=== PATIENT | male | born 1965 | race Caucasian/White ===

== ENCOUNTER → 2023-01-12 | Outpatient (CLI) | payer MEDICARE, SELFPAY ==
[2023-01-12 15:24] LABS: Hematocrit 41.7 % (40-54); Hemoglobin 14.3 g/dL (13.0-16.5); Mean Corp Hgb Conc 34.3 g/dL (32-36); Mean Platelet Vol. 10.4 fl (6.2-12.0); Platelet Count 138 K/mm3 (150-450); RBC Distribution Width CV 14.5 % (11.6-14.6); RBC Distribution Width SD 52.5 fl (35.1-43.9); Red Blood Count 4.21 M/mm3 (4.6-6.2); White Blood Count 6.7 K/mm3 (4.4-11.0)
[2023-01-12 15:39] LABS: Microalbumin,Random Urine 6.2 mg/L (NO RANGE EST.)
[2023-01-12 16:05] LABS: BNP,B-Type NATRIURETIC PEPTIDE 22.2 pg/mL (0-100)
[2023-01-12 16:12] LABS: ALB/GLOB Ratio 1.1 RATIO (0.9-2.4); AST(SGOT) 69 U/L (15-37); Alanine Aminotransfer ALT/SGPT 53 U/L (16-61); Albumin, Serum 3.9 g/dL (3.2-5.0); Alkaline Phosphatase 119 U/L (45-117); Anion Gap 6 (5-15); BUN 6 mg/dL (7-18); BUN/Creat Ratio 7.8 RATIO (10-20); Calcium,Total 9.1 mg/dL (8.5-10.1); Chloride 103 mmol/L (98-107); Cholesterol 166 mg/dL (200); Creatinine, Serum 0.77 mg/dL (0.70-1.30); EST Glomerular Filtration Rate 110 mL/min (>60); Est Glom Filt Rate - Afr Amer 133 mL/min (>60); Globulin 3.5 g/dL (2.2-4.2); Glucose 124 mg/dL (74-106); High Density Lipoprotein 41 mg/dL; Potassium 3.4 mmol/L (3.5-5.1); Protein, Total 7.4 g/dL (6.4-8.2); Sodium Level 136 mmol/L (136-145); Triglycerides 251 mg/dL; Very Low Density Lipoprotein 50 mg/dL (5-40)
== END | disposition home or self-care (01) ==
PROVIDERS: PCP Nurse Practitioner Family; Referring Provider Nurse Practitioner Family; Visit Provider Nurse Practitioner Family
DX: J18.9 Pneumonia, unspecified organism (principal); I11.0 Hypertensive heart disease with heart failure; I50.22 Chronic systolic (congestive) heart failure; R91.8 Other nonspecific abnormal finding of lung field; R06.02 Shortness of breath; D64.9 Anemia, unspecified; E78.6 Lipoprotein deficiency
CPT/HCPCS: 36415; 80053; 80061; 82043; 83880; 85027

== ENCOUNTER 2023-06-30 10:21 | Emergency (ER) | payer MEDICARE, MEDICAID, SELFPAY ==
[2023-06-30 10:22] VITALS: BP 114/97; PULSE 97; RESP 14; TEMP 36.6; O2SAT 98; BMI 34.7
--- NOTE | 2023-06-30 11:20 | CT_ITS ---
STUDY: CT ABDOMEN AND PELVIS WITH CONTRAST REASON FOR EXAM: Male, 57 years old. Left kidney pain RADIATION DOSAGE (If Supplied By Facility): CTDIvol = ( 14.67 ) mGy, DLP = ( 1200.14 ) mGycm TECHNIQUE: Transaxial images were obtained from the dome of the diaphragm to the symphysis pubis without oral contrast. IV 100mL Isovue-300 was administered. Sagittal and coronal images were reconstructed. Individualized dose optimization techniques were used for this CT. COMPARISON: None. FINDINGS: The visualized lung bases are unremarkable. Coronary artery calcification. There is decreased attenuation of the liver consistent with steatosis. Hepatomegaly. Mildly thickened gallbladder wall. There appears to be sludge or tiny polyps within the gallbladder lumen. Normal spleen. Normal pancreas. Normal bilateral adrenal glands. Normal right kidney. Normal left kidney. Normal visualized stomach. Normal small intestine. There are multiple colonic diverticula consistent with diverticulosis. The appendix is visualized and appears normal. There is scattered atherosclerotic calcification of the abdominal aorta, without a demonstrated aneurysm. Normal inferior vena cava. Normal retroperitoneum. Normal urinary bladder. There are prostatic calcifications. There is a small umbilical hernia containing fat. Normal osseous structures. CT/Abdomen/Pelvis W IV Cont ONLY IMPRESSION: Hepatomegaly and diffuse fatty infiltration of the liver. Mildly thickened gallbladder wall with tiny polyps or gallstones and sludge. Small umbilical hernia containing fat. Sigmoid diverticulosis. Electronically Signed: Carlo Marquez MD at 13:15 EDT ,
--- NOTE | 2023-06-30 11:22 | EDS_ITS ---
HPI History of Present Illness Chief Complaint: Flank Pain Narrative Narrative: Patient is a 57-year-old male who is presenting to the ER today with chief complaint of 2-day history of left lower back pain/left kidney pain. Patient does have a history of kidney stones, patient states its been a long time since she has had a kidney stone. Patient is worried about kidney infection. Patient has no urinary frequency, urgency or burning. Patient was due to have umbilical hernia surgery this morning. Patient was having some bilateral equal leg swelling to his lower extremities today, patient also is having left lower back pain. Patient has no chest pain or shortness of breath. Patient has no abdominal pain, nausea or vomiting. Patient canceled his umbilical surgery today. Patient stated he was concerned about his left kidney and will do the umbilical surgery at a later date. Patient is on no heavy lifting, twisting or turning. Patient takes medication for cholesterol, also takes Bumex for help with his heart, kidneys and swelling to his legs that is chronic. Patient took a taxi to the ER today. No rash. No other acute complaints. No trauma, heavy lifting or twisting or turning. [facility] Medical History (Updated 06/30/23 @ 14:[address] Eduardo Fonseca DO) Alcohol use Arthritis Cardiology follow-up encounter CHF (congestive heart failure) Chronic cough COPD (chronic obstructive pulmonary disease) Diabetes High cholesterol History of stress test HTN (hypertension) Insomnia Smoker Wears dentures Wears glasses Wears hearing aid Home Medications aspirin 81 mg tablet,delayed release 81 mg PO DAILY 05/07/23 [History Last Taken Unknown] fenofibrate nanocrystallized 145 mg tablet 145 mg PO DAILY 05/07/23 [History Last Taken Unknown] icosapent ethyl 1 gram capsule (Vascepa) 2 g PO BID 05/07/23 [History Last Taken Unknown] losartan 25 mg tablet 25 mg PO DAILY 05/07/23 [History Last Taken Unknown] metoprolol succinate 25 mg tablet,extended release 24 hr 25 mg PO DAILY 05/07/23 [History Last Taken Unknown] albuterol sulfate 90 mcg/actuation breath activated powder inhaler 2 inh inhalation Q6H PRN shortness of breath 06/23/23 [History Last Taken Unknown] atorvastatin 40 mg tablet 40 mg PO DAILY 06/23/23 [History Last Taken Unknown] bumetanide 0.5 mg tablet 0.5 mg PO DAILY 06/23/23 [History Last Taken Unknown] empagliflozin 10 mg tablet (Jardiance) 10 mg PO DAILY 06/23/23 [History Last Taken Unknown] multivitamin 1 tab PO DAILY 06/23/23 [History Last Taken Unknown] trazodone 100 mg tablet 100 mg PO QHS PRN SLEEPING 06/23/23 [History Last Taken Unknown] umeclidinium 62.5 mcg-vilanterol 25 mcg/actuation powdr for inhalation (Anoro Ellipta) 1 inh inhalation DAILY 06/23/23 [History Last Taken Unknown] Allergy/AdvReac Type Severity Reaction Status Date / Time No Known Allergies Allergy Verified 06/25/23 13:16 Family History (Updated 06/23/23 @ 13:29 by Devora Flores) Mother Hypertension Arthritis Surgical History (Updated 06/25/23 @ 13:35 by Puma Odom) S/P carpal tunnel release S/P right knee surgery Total knee replacement status Social History (Updated 06/23/23 @ 13:28 by Devora Flores) Smoking Status: Current every day smoker tobacco type: cigarettes alcohol intake: current alcohol intake frequency: a few times a week substance use type: former substance user ROS ROS ED ROS Narrative REVIEW OF SYSTEMS: Unless otherwise stated in this report the patient's positive and negative responses for review of systems for constitutional, eyes, ENT, cardiovascular, respiratory, gastrointestinal, neurological, , musculoskeletal, and integument systems and related systems to the presenting problem are either stated in the history of present illness or were not pertinent or were negative for the symptoms and/or complaints related to the presenting medical problem. EXAM Physical Exam Narrative Exam Narrative: Vital signs reviewed and patient is not hypoxic. General: The patient appears well and in no apparent distress. Patient is resting uncomfortably on cart. Not toxic, lethargic, or listless. Skin: Warm, dry, no pallor noted. There is no rash noted. No rash to lower back. Head: Normocephalic, atraumatic Eye: Normal conjunctiva, no drainage, EOMI. PERRL. Ears, Nose, Mouth, and Throat: oral mucosa is moist. Nares patent. Mouth without vesicles. Cardiovascular: Regular Rate and Rhythm, no murmurs, gallops, or rubs Respiratory: Patient is in no distress, no accessory muscle use, lungs are clear to auscultation, no wheezing, rales or rhonchi Back: Patient has no tenderness to palpation that is reproducible to left lower lumbar area, left CVA area, no rash. Patient has no flank pain on the left, no left lower quadrant tenderness to palpation. Otherwise, no CVA tenderness bilaterally to percussion. NO CTLS midline or paraspinal tenderness to palpation. GI: Soft, no tenderness to palpation, no masses appreciated. No rebound, guarding, or rigidity noted. Patient has no tenderness palpation to testicles, exam was deferred. Patient has no bilateral inguinal tenderness to palpation. Patient does have noted umbilical hernia, no pain to periumbilical area. Musculoskeletal: The patient has full range of motion of all extremities and joints with no difficulty. Patient has no motor, no sensory deficits. Neurological: A&O x4, normal speech, no focal neurological deficits. Psychiatric: Cooperative Const Vital Signs: 06/30/23 10:22 06/30/23 10:44 06/30/23 14:09 Temperature 98 F Temperature Source Temporal Pulse Rate 97 Respiratory Rate 14 16 Respiratory Effort Normal Non-Labored Respiratory Pattern Normal Blood Pressure 114/97 H Blood Pressure Mean 102 Pulse Ox 98 Oxygen Delivery Method Room Air MDM MDM MDM Narrative Medical decision making narrative: Patient is lab work and urine and CT of the abdomen pelvis showed no acute findings. Patient will continue [id number] medication, ice and stretching. Patient will follow-up with PCP and will reschedule his umbilical hernia surgery. No signs of urinary tract infection, no pyelonephritis, no signs of kidney stone. Patient felt better with medication given. Patient will continue ice and stretching. Patient walked out of the ER with no significant difficulties. Lab Data Attestation: I reviewed the patient's lab results. Labs: Laboratory Results - last 24 hr 06/30/23 06/30/23 11:30 11:45 WBC 6.5 RBC 4.78 Hgb 15.2 Hct 46.0 MCV 96.2 H MCH 31.8 MCHC 33.0 RDW Std Deviation 53.9 H RDW Coeff of Oswaldo 15.2 H Plt Count 160 MPV 10.2 Immature Gran % (Auto) 0.300 Neut % (Auto) 48.7 Lymph % (Auto) 33.6 Nance % (Auto) 10.5 H Eos % (Auto) 5.4 H Baso % (Auto) 1.5 H Absolute Neuts (auto) 3.1 Absolute Lymphs (auto) 2.17 Nucleated RBC % 0 Sodium 139 Potassium 3.5 Chloride 106 Carbon Dioxide 26.0 Anion Gap 7 BUN 7 Creatinine 0.91 Estim Creat Clear Calc 89.56 Est GFR (MDRD) Af Amer 110 Est GFR (MDRD) Non-Af 91 BUN/Creatinine Ratio 7.7 L Glucose 126 H Calcium 9.6 Total Bilirubin 0.60 AST 46 H ALT 43 Alkaline Phosphatase 67 Total Protein 7.8 Albumin 3.7 Globulin 4.1 Albumin/Globulin Ratio 0.9 Lipase 66 Urine Color Yellow Urine Clarity Clear Urine pH 6.0 Ur Specific [place] 1.015 Urine Protein Negative Urine Glucose (UA) 1000 H Urine Ketones Negative Urine Occult Blood Negative Urine Nitrite Negative Urine Bilirubin Negative Urine Urobilinogen Normal Ur Leukocyte Esterase Negative Urine RBC 0 SEEN Urine WBC 0 SEEN Ur Squamous Epith Cells 0 SEEN Urine Bacteria 0 SEEN Urine Mucus 0 SEEN Radiography Diagnostic Testing: Clinical Impression(s) from Imaging Studies Abdomen/Pelvis CT 06/30/23 11:20 IMPRESSION: Hepatomegaly and diffuse fatty infiltration of the liver. Mildly thickened gallbladder wall with tiny polyps or gallstones and sludge. Small umbilical hernia containing fat. Sigmoid diverticulosis. Electronically Signed: Carlo Marquez MD at 13:15 EDT , Discharge Plan Triage Chief Complaint: Flank Pain ED Provider: Eduardo Fonseca Dx/Rx/DC Orders Clinical Impression: Left lumbar pain, Left low back pain Instructions: Relieving Back Pain, ED Back Care Tips, ED Back Exercises, Lumbar Prescriptions: No Action icosapent ethyl [Vascepa] 1 gram capsule 2 g PO BID metoprolol succinate 25 mg tablet extended release 24 hr 25 mg PO DAILY losartan 25 mg tablet 25 mg PO DAILY fenofibrate nanocrystallized 145 mg tablet 145 mg PO DAILY aspirin 81 mg tablet,delayed release (DR/EC) 81 mg PO DAILY trazodone 100 mg tablet 100 mg PO QHS PRN (Reason: SLEEPING) albuterol sulfate 90 mcg/actuation aerosol powdr breath activated 2 inh inhalation Q6H PRN (Reason: shortness of breath) atorvastatin 40 mg tablet 40 mg PO DAILY bumetanide 0.5 mg tablet 0.5 mg PO DAILY Jardiance 10 mg tablet 10 mg PO DAILY multivitamin Tablet 1 tab PO DAILY Anoro Ellipta 62.5-25 mcg/actuation blister with device 1 inh inhalation DAILY Primary Care Provider: Eduardo Serrano NP Referrals: Eduardo Serrano NP, [employer]ES PRODUCT SPECIALIST-C [Primary Care Provider] - Activity Restrictions/Additional Instructions: ICE 20 min on, 20 min off. Follow up with PCP for physical therapy if needed. Disposition Disposition: Home, Self Care Discharge Date/Time: 06/30/23 14:09
[2023-06-30 11:35] LABS: Bacteria 0 SEEN /hpf (None Seen); Mucous, Urine 0 SEEN /hpf (<or=2+); Red Blood Cells-Urine 0 SEEN /hpf (0-5); Squamous Epithelial Cells - UA 0 SEEN /hpf (0-5); White Blood Cells 0 SEEN /hpf (0-5)
[2023-06-30 11:45] LABS: Color, Urine Yellow (Yellow); Glucose, Dipstick 1000 mg/dl (Normal); Ketone-Dipstick Negative (Negative); Leukocyte Esterase-Dipstick Negative /ul (Negative); Nitrite-Dipstick Negative (Negative); Occult Blood-Urine Negative /ul (Negative); Protein-Dipstick Negative (Negative); Specific Gravity, Urine 1.015 (1.002-1.030); Urine Bilirubin Dipstick Negative (Negative); Urine Clarity Clear (Clear); Urine Urobilinogen Normal (Normal)
[2023-06-30] MEDS: Acetaminophen 325 MG Tablet 650 MG PO (11:45)
[2023-06-30] MEDS: Ketorolac 30 MG/ML Syringe IV (11:45)
[2023-06-30] MEDS: 0.9% Normal Saline 1,000 ML 1000 ML IV (11:48)
[2023-06-30 11:55] LABS: Absolute Lymphocyte Count 2.17 X10^3/uL (0.83-4.51); Absolute Neutrophil Count 3.1 X10^3/uL (2.0-7.7); Basophil% 1.5 % (0-1); Eosinophil# 0.35 X10^3/uL; Eosinophils% 5.4 % (0-5); Hemoglobin 15.2 g/dL (13.0-16.5); Lymphocyte # 2.17 X10^3/ul (0.83-4.51); Lymphocyte % 33.6 % (19-41); Mean Corpuscular Hgb 31.8 pg (27.0-32.0); Mean Corpuscular Volume 96.2 fL (80-94); Mean Platelet Vol. 10.2 fl (6.2-12.0); Monocyte# 0.68 X10^3/uL; Monocyte% 10.5 % (0-10); NRBC Flagged by Analyzer 0 % (0-5); Neutrophil # 3.14 X10^3/uL (2.7-7.7); Neutrophil % 48.7 % (47-70); Platelet Count 160 K/mm3 (150-450); RBC Distribution Width CV 15.2 % (11.6-14.6); RBC Distribution Width SD 53.9 fl (35.1-43.9); Red Blood Count 4.78 M/mm3 (4.6-6.2); White Blood Count 6.5 K/mm3 (4.4-11.0)
[2023-06-30 12:16] LABS: ALB/GLOB Ratio 0.9 RATIO (0.9-2.4); AST(SGOT) 46 U/L (15-37); Alanine Aminotransfer ALT/SGPT 43 U/L (16-61); Albumin, Serum 3.7 g/dL (3.2-5.0); Alkaline Phosphatase 67 U/L (45-117); Anion Gap 7 (5-15); BUN 7 mg/dL (7-18); BUN/Creat Ratio 7.7 RATIO (10-20); Calcium,Total 9.6 mg/dL (8.5-10.1); Chloride 106 mmol/L (98-107); Creatinine, Serum 0.91 mg/dL (0.70-1.30); EST Glomerular Filtration Rate 91 mL/min (>60); Est Glom Filt Rate - Afr Amer 110 mL/min (>60); Estimated Creatinine Clearance 89.56 ml/min; Globulin 4.1 g/dL (2.2-4.2); Glucose 126 mg/dL (74-106); Lipase 66 U/L (13-75); Potassium 3.5 mmol/L (3.5-5.1); Protein, Total 7.8 g/dL (6.4-8.2); Sodium Level 139 mmol/L (136-145)
[2023-06-30 14:09] VITALS: RESP 16
== END 2023-06-30 14:09 | disposition home or self-care (01) ==
PROVIDERS: Emergency Provider Emergency Medicine; PCP Nurse Practitioner Family; Visit Provider Emergency Medicine
DX: M54.50 Low back pain, unspecified (principal); J44.9 Chronic obstructive pulmonary disease, unspecified; I11.0 Hypertensive heart disease with heart failure; I50.9 Heart failure, unspecified; E11.9 Type 2 diabetes mellitus without complications; E78.00 Pure hypercholesterolemia, unspecified; F17.210 Nicotine dependence, cigarettes, uncomplicated; Z87.442 Personal history of urinary calculi; Z79.899 Other long term (current) drug therapy; R10.9 Unspecified abdominal pain
CPT/HCPCS: 74177; 80053; 81001; 83690; 85025; 96361; 96374; 99284; J7030; Q9967; A4216

== ENCOUNTER 2023-07-07 07:12 | Day surgery (SDC) | payer MEDICARE, MEDICAID, SELFPAY ==
--- NOTE | 2023-06-26 08:05 | EKG12_ITS ---
Test Reason : PRE OP Blood Pressure : / mmHG Vent. Rate : 091 BPM Atrial Rate : 091 BPM P-R Int : 154 ms QRS Dur : 088 ms QT Int : 356 ms P-R-T Axes : 051 -37 039 degrees QTc Int : 437 ms Normal sinus rhythm Left axis deviation Abnormal ECG Confirmed by MOSHE COOK, CORTNEY ([id number]), proposal editor LARRY GARCIA ([id number]) on 06/29/2023 8:32:17 AM Referred By: Bell Iglesias Confirmed By:SADIQ MESA MD
[2023-06-26 08:52] LABS: Absolute Lymphocyte Count 3.42 X10^3/uL (0.83-4.51); Absolute Neutrophil Count 3.4 X10^3/uL (2.0-7.7); Basophil# 0.11 X10^3/uL; Basophil% 1.3 % (0-1); Eosinophil# 0.22 X10^3/uL; Eosinophils% 2.7 % (0-5); Hematocrit 45.9 % (40-54); Hemoglobin 15.1 g/dL (13.0-16.5); Lymphocyte # 3.42 X10^3/ul (0.83-4.51); Lymphocyte % 41.8 % (19-41); Mean Corp Hgb Conc 32.9 g/dL (32-36); Mean Corpuscular Hgb 32.1 pg (27.0-32.0); Mean Corpuscular Volume 97.5 fL (80-94); Mean Platelet Vol. 10.3 fl (6.2-12.0); Monocyte# 0.95 X10^3/uL; Monocyte% 11.6 % (0-10); NRBC Flagged by Analyzer 0 % (0-5); Neutrophil # 3.44 X10^3/uL (2.7-7.7); Neutrophil % 42.1 % (47-70); Platelet Count 193 K/mm3 (150-450); RBC Distribution Width CV 15.4 % (11.6-14.6); RBC Distribution Width SD 55.3 fl (35.1-43.9); Red Blood Count 4.71 M/mm3 (4.6-6.2); White Blood Count 8.2 K/mm3 (4.4-11.0)
[2023-06-26 09:23] LABS: Anion Gap 3 (5-15); BUN 7 mg/dL (7-18); BUN/Creat Ratio 9.9 RATIO (10-20); Calcium,Total 8.9 mg/dL (8.5-10.1); Chloride 108 mmol/L (98-107); EST Glomerular Filtration Rate 122 mL/min (>60); Est Glom Filt Rate - Afr Amer 148 mL/min (>60); Glucose 97 mg/dL (74-106); Potassium 3.9 mmol/L (3.5-5.1); Sodium Level 137 mmol/L (136-145)
[2023-06-26 09:26] LABS: Hemoglobin A1c 5.8 % (3.8-5.6)
[2023-06-30] MEDS: Cefazolin 2 GM in 0.9% Normal Saline 100 ML IV (08:38)
--- NOTE | 2023-07-07 07:19 | HP.PCM_ITS ---
History and Physical Date of Admission: 07/07/23 Date of Service: 06/23/23 MR#: [id number] Acct: [id number] Name: LUIS BRANDON Rep #: [id number] : 1965 Provider: Dr. Bell Iglesias MD Age/Sex: 57/M Location: [facility] Status: Signed Intake Vital Signs 05/07/2314:37 06/23/2313:29 Height 5 ft 9 in 5 ft 9 in Weight: 229 lb 225 lb BMI 33.7 33.2 BP 123/79 H 124/67 H Blood Pressure Location Rt brachial Rt brachial Position Sitting Sitting Respiration 17 18 Pulse 106 H Pulse Source Monitor Temp 96.6 F L Temp Source Tympanic Intake Visit Reasons: UMBILICAL HERNIA/MED CHECK Chief Complaint: UMBILICAL HERNIA INCREASE IN SIZE Rodeo Performer Required: No Is patient in pain?: No Allergies No Known Allergies Allergy (Verified 06/25/23 13:16) Medications aspirin 81 mg tablet,delayed release 81 mg PO DAILY 05/07/23 [History Confirmed 06/25/23] fenofibrate nanocrystallized 145 mg tablet 145 mg PO DAILY 05/07/23 [History Confirmed 06/25/23] icosapent ethyl 1 gram capsule (Vascepa) 2 g PO BID 05/07/23 [History Confirmed 06/25/23] losartan 25 mg tablet 25 mg PO DAILY 05/07/23 [History Confirmed 06/25/23] metoprolol succinate 25 mg tablet,extended release 24 hr 25 mg PO DAILY 05/07/23 [History Confirmed 06/25/23] albuterol sulfate 90 mcg/actuation breath activated powder inhaler 2 inh inhalation Q6H PRN shortness of breath 06/23/23 [History Confirmed 06/25/23] atorvastatin 40 mg tablet 40 mg PO DAILY 06/23/23 [History Confirmed 06/25/23] bumetanide 0.5 mg tablet 0.5 mg PO DAILY 06/23/23 [History Confirmed 06/25/23] empagliflozin 10 mg tablet (Jardiance) 10 mg PO DAILY 06/23/23 [History Confirmed 06/25/23] multivitamin 1 tab PO DAILY 06/23/23 [History Confirmed 06/25/23] trazodone 100 mg tablet 100 mg PO QHS PRN SLEEPING 06/23/23 [History Confirmed 06/25/23] umeclidinium 62.5 mcg-vilanterol 25 mcg/actuation powdr for inhalation (Anoro Ellipta) 1 inh inhalation DAILY 06/23/23 [History Confirmed 06/25/23] PFSH Medical History (Updated 06/25/23 @ 13:35 by Puma Odom) Alcohol use Arthritis Cardiology follow-up encounter CHF (congestive heart failure) Chronic cough COPD (chronic obstructive pulmonary disease) Diabetes High cholesterol History of stress test HTN (hypertension) Insomnia Smoker Wears dentures Wears glasses Wears hearing aid Surgical History (Updated 06/25/23 @ 13:35 by Puma Odom) S/P carpal tunnel release S/P right knee surgery Total knee replacement status Family History (Updated 06/23/23 @ 13:29 by Devora Flores) Mother Hypertension Arthritis Social History (Updated 06/23/23 @ 13:28 by Devora Flores) Smoking Status: Current every day smoker tobacco type: cigarettes alcohol intake: current alcohol intake frequency: a few times a week substance use type: former substance user HPI HPI HPI: 57-year-old male presents due to umbilical hernia. Patient was previously seen in the office however he was not taking his prescribed medication daily including his beta-radha at that time. Patient denies much pain at the umbil icus but does state thinks he has gotten a little larger. Patient states he has been taking his prescribed medication daily since last office visit. ROS General General: Yes weight change; No appetite, fatigue, colon cancer, breast cancer or weakness HEENT HEENT: No difficulty swallowing, eye injury, eye surgery, swollen glands or h oarseness Endo Endocrine: No thyroid disease, diabetes mellitus, thyroid cancer, Hair loss, heat intolerance or cold intolerance Skin Skin: No rash or changing moles Breast Breast: No left breast lump, right breast lump, nipple discharge, breast pain, abnormal mammogram, abnormal US or breast enlargement Musc Musculoskeletal: Yes arthritis and rheumatoid arthritis; No back problems, gout or joint pain Cardio Cardiovascular: Yes murmur and heart disease; No pacemaker, atrial fibrillation, high blood pressure, heart attack, heart stent, palpitations, shortness of breat with exertion or chest pain Psych Psychiatric: No depression, anxiety or hearing voices Resp Respiratory: Yes shortness of breath, Yes sleep apnea, Yes cough, No COPD, No asthma, No emphysema and No wheezing Gastro Gastrointestinal: No abdominal pain, No nausea or vomiting, No diarrhea, No constipation, No blood in stool, No acid reflux, No hemorrhoids, No ulcers, No gallbladder problem and No black,tarry stools Cristofer Hematologic: No blood thinners, No blood disorders, No bleeding, No anemia and No blood clots Neuro Neurologic: No system reviewed and no additional complaints, except as documented, No as per HPI, No abnormal gait, No abnormal hearing, No abnormal movements, No abnormal speech, No behavioral changes, No burning sensations, No confusion, No convulsions, No disequilibrium, No dizziness, No localized weakness, No frequent falls, No headache(s), No lack of coordination, No loss of vision, No memory loss, No numbness, No other visual disturbances, No radicular pain, No restless legs, No sensory deficit, No syncope, No tingling, No tremor(s), No weakness and No other Exam Const General: cooperative, healthy appearing, comfortable and no acute distress Neck Neck: supple Resp Effort & Inspection: normal respiratory effort Cardio Rate: regular rate GI Inspection: non-distended Palpation: soft, hernia umbilical (Reducible about 1.3 cm in size) and nontender Skin General: no rashes or lesions noted Neuro General: CN's II-XI intact bilaterally Extrem General: normal to inspection Psych Mental Status: mental status grossly normal Attitude: cooperative Assessment and Plan Assessment and Plan (1) Umbilical hernia without obstruction and without gangrene: Status: Acute Plan Plan to do an umbilical hernia repair with mesh. Reviewed the procedure with the patient including the risks, including but not limited to infection, bleeding, injury to the small bowel, and recurrence. All questions were answered. Also, discussed risk of strangulated bowel. Cautioned the patient that if he has N/V, ABD distention, increased umbilical pain or changes of the skin over the hernia he needs to go to the ER. Bell Iglesias M.D. Pager: [phone] [facility] [address] [place] [address], [address] [place] [address] Office: [phone] Coding Level of Care Code Off vis,est,level 3 Diagnoses Umbilical hernia without obstruction and without gangrene K42.9 08/11/23 0811 <Electronically signed by Bell Iglesias MD> Date Bell Iglesias MD
[2023-07-07 07:51] VITALS: BP 132/74; PULSE 84; RESP 16; TEMP 36.6; O2SAT 98; BMI 35.2
[2023-07-07] MEDS: Lactated Ringers 1,000 ML 15 ML IV (07:54)
[2023-07-07] MEDS: Cefazolin 2 GM in 0.9% Normal Saline 100 ML IV (08:38)
[2023-07-07 09:12] LABS: Bedside Glucose 127 mg/dL (74-106)
[2023-07-07] MEDS: Bupivacaine Mpf 0.5% 30 ML VIAL (09:31)
--- NOTE | 2023-07-07 09:56 | OP.PCM_ITS ---
Report of Operation Date of Procedure: 07/07/23 Pre-Operative Diagnosis: Umbilical hernia, reducible Post-Operative Diagnosis: Same Surgery/Procedure Performed:: Umbilical hernia repair with mesh Surgeon: Bell Iglesias Type of Anesthesia: General/Supplemental Anesthesiologist: Tanner Torres Special Medications: Ancef 2 g IV x1 Estimated Blood Loss (mL): < 10 cc Description of Procedure: Patient was brought into the room placed supine on the operating table. Correct patient, procedure, site, positioning, special, was verified prior to procedure. General anesthesia was induced. The abdomen was prepped draped in usual sterile fashion. A curvilinear incision was made below the umbilicus with a 15 blade scalpel. This was deepened with electrocautery. A hemostat was used to go around the stalk of the umbilicus and Metzenbaum scissors was used to carefully divide the hernia sac from the skin of the umbilicus. The fascia around the hernia defect was cleared and the hernia defect measured 1.7 x 2 cm. A medium (6.4 cm) Ventralex ST hernia patch was used and secured laterally at the tails with 0 Prolene mattress sutures. 0 Prolene suture was placed to close the fascia in a [id number] including the mesh inferiorly and superiorly. The wound was irrigated with saline. Hemostasis was assured. The skin of the umbilicus was secured to the fascia using 3-0 Vicryl suture interrupted. The incision was closed with 3-0 Vicryl subdermal interrupted sutures and the skin was closed with interrupted 4-0 Monocryl sutures. Steri- Strips and Tegaderm and OpSite were placed over the incision once sterile cotton balls were placed in the umbilicus. Patient was extubated. Patient tolerated procedure well and was taken to the postanesthesia care unit in stable condition. Grafts/Implants Used: Ventralex ST hernia patch 6.4 cm, lot [id number], ref [id number] Complications none
--- NOTE | 2023-07-07 09:59 | DCINST_ITS ---
Discharge Instructions Diet Discharge Diet: Light diet - advance as tolerated Activity May shower in (days): 5 (Keep umbilical dressing clean dry and intact for 5 days. Okay to tape off with a Ziploc bag to shower. Or lower shower and upper sponge bath.) Lifting Restrictions: no lifting >20 lbs x 2 wks, no strenuous exercise for 4 wks Additional Activity Instructions:: - Dressing / Incision Call your doctor if your incision/area has: Continuous Slow Oozing, Sudden Increased Bleeding, Increased Pain/ Swelling, Increased Redness, Foul Smelling Discharge and Swelling at the incision site Call your doctor if you observe: Fever of 101 or Higher Remove Dressing in: 5 days (After 5 days okay to remove surgical dressing. Place cotton ball or rolled up gauze in bellybutton and retape daily for 2 more days.) Cleanse incision/area with: Do not get Incision Wet (for 5 days) Additional Dressing/Incision Instructions:: Steri-Strips will fall off in 7 to 10 days, if they do not fall off okay to remove after 10 days. Follow Up Care Please Follow Up With: Bell Iglesias MD When: Call the office for a follow-up appointment 2 weeks; after 5 PM and on the weekends call [phone] with any concerns. Test Results: Test results from this visit will be discussed in further detail at your follow- up appointment, if applicable. Discharge Plan Admission Attending Provider: Bell Iglesias Primary Care Provider: Eduardo Serrano MECHANICAL DESIGN DRAFTER Discharge Orders/Prescriptions Prescriptions: No Action icosapent ethyl [Vascepa] 1 gram capsule 2 g PO BID metoprolol succinate 25 mg tablet extended release 24 hr 25 mg PO DAILY losartan 25 mg tablet 25 mg PO DAILY fenofibrate nanocrystallized 145 mg tablet 145 mg PO DAILY aspirin 81 mg tablet,delayed release (DR/EC) 81 mg PO DAILY trazodone 100 mg tablet 100 mg PO QHS PRN (Reason: SLEEPING) albuterol sulfate 90 mcg/actuation aerosol powdr breath activated 2 inh inhalation Q6H PRN (Reason: shortness of breath) atorvastatin 40 mg tablet 40 mg PO DAILY bumetanide 0.5 mg tablet 0.5 mg PO DAILY Jardiance 10 mg tablet 10 mg PO DAILY multivitamin Tablet 1 tab PO DAILY Anoro Ellipta 62.5-25 mcg/actuation blister with device 1 inh inhalation DAILY Other Ambulatory Orders: 12 Lead EKG (Routine) Timeframe: [id number] Location: None Selected Ordered By: Dr. Tanner Torres Referrals / Follow Up: Eduardo Serrano MECHANICAL DESIGN DRAFTER, MECHANICAL DESIGN DRAFTER-C [Primary Care Provider] - Disposition Disposition (needs filled in before D/C Order can be placed): Home, Self Care
[2023-07-07 10:03] VITALS: BP 122/79; BP 132/74; PULSE 82; RESP 18; TEMP 36.8; O2SAT 94
[2023-07-07 10:15] VITALS: BP 110/75; BP 132/74; PULSE 93; RESP 16; O2SAT 95
[2023-07-07 10:27] VITALS: BP 115/61; BP 132/74; PULSE 90; RESP 17; TEMP 36.7; O2SAT 95
[2023-07-07 10:27] LABS: Bedside Glucose 157 mg/dL (74-106)
[2023-07-07 10:27] LABS: Bedside Glucose 120 mg/dL (74-106)
[2023-07-07 11:58] VITALS: BP 132/74; BP 147/73; PULSE 86; RESP 16; TEMP 36.3; O2SAT 96
== END 2023-07-07 12:14 | disposition home or self-care (01) ==
LOC: SDC 07:17 → AC 07:18
PROVIDERS: Anesthesiology; PCP Nurse Practitioner Family; Referring Provider Surgery; Visit Provider Surgery
PROC: (CPT 49591; principal; 2023-07-07 08:30)
DX: K42.9 Umbilical hernia without obstruction or gangrene (principal); J44.9 Chronic obstructive pulmonary disease, unspecified; I11.0 Hypertensive heart disease with heart failure; I50.9 Heart failure, unspecified; E11.9 Type 2 diabetes mellitus without complications; G47.00 Insomnia, unspecified; E78.00 Pure hypercholesterolemia, unspecified; F17.210 Nicotine dependence, cigarettes, uncomplicated; Z79.84 Long term (current) use of oral hypoglycemic drugs; Z79.82 Long term (current) use of aspirin; Z79.899 Other long term (current) drug therapy
CPT/HCPCS: 49591; 36415; 80048; 82962; 83036; 85025; 93005; C1781; J7120; J2405

== ENCOUNTER → 2023-07-21 | Outpatient (CLI) | payer MEDICARE, MEDICAID, SELFPAY ==
[2023-07-21 13:09] LABS: Hematocrit 45.6 % (40-54); Hemoglobin 15.5 g/dL (13.0-16.5); Mean Corpuscular Hgb 31.1 pg (27.0-32.0); Mean Corpuscular Volume 91.6 fL (80-94); Mean Platelet Vol. 10.4 fl (6.2-12.0); Platelet Count 142 K/mm3 (150-450); RBC Distribution Width CV 14.4 % (11.6-14.6); RBC Distribution Width SD 48.4 fl (35.1-43.9); Red Blood Count 4.98 M/mm3 (4.6-6.2); White Blood Count 7.2 K/mm3 (4.4-11.0)
[2023-07-21 13:35] LABS: Microalbumin,Random Urine < 5.0 mg/L (NO RANGE EST.)
[2023-07-21 13:36] LABS: AST(SGOT) 146 U/L (15-37); Alanine Aminotransfer ALT/SGPT 104 U/L (16-61); Albumin, Serum 3.6 g/dL (3.2-5.0); Alkaline Phosphatase 85 U/L (45-117); Anion Gap 11 (5-15); BUN 7 mg/dL (7-18); BUN/Creat Ratio 8.4 RATIO (10-20); Calcium,Total 8.7 mg/dL (8.5-10.1); Chloride 106 mmol/L (98-107); Cholesterol 129 mg/dL (200); Creatinine, Serum 0.83 mg/dL (0.70-1.30); EST Glomerular Filtration Rate 101 mL/min (>60); Est Glom Filt Rate - Afr Amer 122 mL/min (>60); Globulin 3.6 g/dL (2.2-4.2); Glucose 138 mg/dL (74-106); High Density Lipoprotein 52 mg/dL; Potassium 3.4 mmol/L (3.5-5.1); Protein, Total 7.2 g/dL (6.4-8.2); Sodium Level 138 mmol/L (136-145); Triglycerides 259 mg/dL; Very Low Density Lipoprotein 52 mg/dL (5-40)
[2023-07-21 14:57] LABS: Vitamin D,25 Hydroxy 30.4 ng/mL
== END | disposition home or self-care (01) ==
LOC: LAB 12:47
PROVIDERS: PCP Nurse Practitioner Family; Referring Provider Nurse Practitioner Family; Visit Provider Nurse Practitioner Family
DX: I11.0 Hypertensive heart disease with heart failure (principal); J43.9 Emphysema, unspecified; I50.22 Chronic systolic (congestive) heart failure; E78.5 Hyperlipidemia, unspecified; R79.89 Other specified abnormal findings of blood chemistry; R73.01 Impaired fasting glucose; E55.9 Vitamin D deficiency, unspecified; D56.9 Thalassemia, unspecified
CPT/HCPCS: 36415; 80053; 80061; 82043; 82306; 83036; 85027

== ENCOUNTER 2023-12-24 18:02 | Inpatient (IN) | payer MEDICARE, SELFPAY ==
[2023-12-24 18:03] VITALS: BP 130/96; PULSE 78; RESP 18; TEMP 35.7; O2SAT 99
--- NOTE | 2023-12-24 18:20 | CT_ITS ---
INDICATION: abdominal pain EXAMINATION: CT Abdomen And Pelvis W/ Contrast Injection TECHNIQUE: Helically acquired images were obtained of the abdomen and pelvis after IV contrast. A radiation dose optimization technique was used for this scan. IV Contrast dosage and agent: IV 100mL Isovue-370 Oral contrast: None. COMPARISON: 06/30/2023. FINDINGS: Visualized lung bases: Unremarkable Liver: Nodular contour compatible cirrhosis. Gallbladder: Unremarkable Spleen: Unremarkable Pancreas: Unremarkable Adrenal Glands: Unremarkable Kidneys: 1.6 cm intermediate density cyst in the left upper renal pole, increased in size since prior measuring 1.3 cm on 06/30/2023.. Vasculature: Moderate aortoiliac atherosclerotic disease. GI Tract: Scattered colonic diverticula. Minimal short segment wall thickening of the proximal sigmoid colon with minimal surrounding fat stranding. Large ulcer of the first portion of the duodenum with surrounding fat stranding. No free air to suggest perforation.. Lymphadenopathy: None Peritoneum: No ascites. Bladder: Collapsed with thickened wall. Reproductive organs: Unremarkable Bones/Soft tissues: Mild scattered degenerative changes of the visualized spine. CT/Abdomen/Pelvis W IV Cont ONLY IMPRESSION: Large duodenal ulcer along the medial wall of the first portion of the duodenum. No free air to suggest perforation. Possible mild acute sigmoid diverticulitis. No focal fluid collection or free air. Increased size of a now 1.6 cm intermediate density cyst in the left upper renal pole. Recommend multiphase MR abdomen with and without contrast renal mass protocol to rule out renal cell carcinoma. Cirrhotic liver with no evidence of portal hypertension. Electronically Signed: Noé Seaman MD at 21:21 EST ,
--- NOTE | 2023-12-24 18:26 | EX.ED.DYSGE1 ---
HPI <BENTLEY Daly - Last Filed: 12/24/23 22:14> History of Present Illness Chief Complaint: GI Bleed Narrative Narrative: Patient is a 58-year-old male with history of alcohol abuse, tobacco use, hypertension, hyperlipidemia, who is on meloxicam. Patient states for the last 24 to 48 hours, he has been having lower abdominal pain, upper abdominal pain as well as blood in his stool. Patient states that last evening, he had a large hard bowel movement that was black. Patient states he has had pain to his upper and lower abdomen all night could not sleep. Today he had bright red blood. He continues to have 2-3 dark tarry stools. He is unsure if he has an ulcer. He is unsure of his last colonoscopy. [facility] <BENTLEY Daly - Last Filed: 12/24/23 22:14> [facility] Medical History (Updated 12/24/23 @ 22:14 by BENTLEY Daly) Alcohol use Arthritis Cardiology follow-up encounter CHF (congestive heart failure) Chronic cough COPD (chronic obstructive pulmonary disease) Diabetes High cholesterol History of stress test HTN (hypertension) Insomnia Smoker Wears dentures Wears glasses Wears hearing aid Home Medications aspirin 81 mg tablet,delayed release 81 mg PO DAILY 05/07/23 [History Last Taken 07/01/23] fenofibrate nanocrystallized 145 mg tablet 145 mg PO DAILY 05/07/23 [History Last Taken Unknown] icosapent ethyl 1 gram capsule (Vascepa) 2 g PO BID 05/07/23 [History Last Taken Unknown] losartan 25 mg tablet 25 mg PO DAILY 05/07/23 [History Last Taken Unknown] metoprolol succinate 25 mg tablet,extended release 24 hr 25 mg PO DAILY 05/07/23 [History Last Taken Unknown] albuterol sulfate 90 mcg/actuation breath activated powder inhaler 2 inh inhalation Q6H PRN shortness of breath 06/23/23 [History Last Taken Unknown] atorvastatin 40 mg tablet 40 mg PO DAILY 06/23/23 [History Last Taken Unknown] bumetanide 0.5 mg tablet 0.5 mg PO DAILY 06/23/23 [History Last Taken Unknown] empagliflozin 10 mg tablet (Jardiance) 10 mg PO DAILY 06/23/23 [History Last Taken Unknown] multivitamin 1 tab PO DAILY 06/23/23 [History Last Taken Unknown] trazodone 100 mg tablet 100 mg PO QHS PRN SLEEPING 06/23/23 [History Last Taken Unknown] umeclidinium 62.5 mcg-vilanterol 25 mcg/actuation powdr for inhalation (Anoro Ellipta) 1 inh inhalation DAILY 06/23/23 [History Last Taken Unknown] oxycodone-acetaminophen 5 mg-325 mg tablet 1 - 2 tab PO Q6H PRN pain 3 days #14 tabs 07/07/23 [Rx Last Taken Unknown] icosapent ethyl 1 gram capsule (Vascepa) 2 g PO BID 12/24/23 [History Last Taken Unknown] meloxicam 15 mg tablet 15 mg PO DAILY 12/24/23 [History Last Taken Unknown] Allergy/AdvReac Type Severity Reaction Status Date / Time No Known Allergies Allergy Verified 12/24/23 18:03 Family History (Updated 06/23/23 @ 13:29 by Devora Flores) Mother Hypertension Arthritis Surgical History History of umbilical hernia repair S/P carpal tunnel release S/P right knee surgery Total knee replacement status Social History (Updated 06/23/23 @ 13:28 by Devora Flores) Smoking Status: Current every day smoker tobacco type: cigarettes alcohol intake: current alcohol intake frequency: a few times a week substance use type: former substance user ROS <BENTLEY Daly - Last Filed: 12/24/23 22:14> [facility] ED ROS Narrative Constitutional: Negative for fever, chills, weight loss,. Positive for weakness Eyes: Negative for vision loss, vision change, double vision ENT: Negative for any sore throat, ear pain, congestion Cardiovascular: Negative for any chest pain, tightness, palpitations Respiratory: Negative for any cough, sputum production, hemoptysis, dyspnea, dyspnea on exertion, orthopnea Gastrointestinal: Negative for any nausea, vomiting, constipation, blood in vomit. Positive for abdominal pain, nausea, vomiting : Negative for any urinary frequency, dysuria, retention, blood in urine Muscle skeletal: Negative for any myalgias, arthralgias, neck pain, back pain Neurological: Negative for any headache, syncope, paresthesias, dizziness Skin: Negative for any rashes, lumps, itching, abrasions, lacerations Psychiatric: Negative for any depression, anxiety, stress, suicidal ideation, homicidal ideation Hematologic: Negative for any easy bruising, excessive bruising, easy bleeding Allergies: Negative for any eczema, hives, rash EXAM <Yash LeivaBENTLEY gonzalez - Last Filed: 12/24/23 22:14> Physical Exam Narrative Exam Narrative: Vital signs reviewed. Patient's vital signs are stable, however patient does appear to be uncomfortable secondary to abdominal pain. HEET: Head normocephalic atraumatic, TMs clear bilaterally. Posterior pharynx is clear, dry mucous membranes. Nares clear bilaterally. Neck: Supple with no lymphadenopathy or tenderness. No signs of meningismus. Cardiac: Regular rate and rhythm no murmurs gallops or rubs, equal peripheral pulses bilaterally. Respiratory: Lungs clear to auscultation bilaterally. No chest tenderness. Abdomen: Soft, patient appears distended however there is no peritoneal signs, active bowel sounds. No specific pain on palpation. Negative for pain in McBurney's point no, negative Singleton sign.. No abdominal bruit or pulsatile masses. No hepatosplenomegaly Extremities: No peripheral edema, no signs of gross trauma or deformity. Active full range of motion of all extremities. Neuro: Cranial nerves II through XII intact, no focal neurological deficits. Skin: Clean dry and intact with no rash, purpura, petechiae, vesicles or pustules. Backs/flank: No CVA tenderness, no midline spinal tenderness, no deformity. Psych: Normal mood and affect. No SI, HI or acute psychosis. Rectal: Rectal exam was completed by me and female nurse social work nurse nurse Phyllis. Patient did have some dark red stool around his anus, patient did have some blood clots the tip of my finger, there is no significant mass felt. No chronic or acute hemorrhoids. No significant hemorrhage at this time Const Vital Signs: 12/24/23 18:03 12/24/23 21:56 12/24/23 21:59 Temperature 96.2 F L 97.3 F L 97.3 F L Temperature Source Temporal Temporal Pulse Rate 78 95 89 Respiratory Rate 18 20 H 20 H Blood Pressure 130/96 H 100/58 L 100/58 L Blood Pressure Mean 107 72 72 Pulse Ox 99 100 100 Oxygen Delivery Method Room Air Room Air Positive well nourished and well developed General Appearance ED: well developed <Dr. Jae Bautista DO - Last Filed: 12/24/23 22:17> Physical Exam Const Vital Signs: 12/24/23 18:03 12/24/23 21:56 12/24/23 21:59 Temperature 96.2 F L 97.3 F L 97.3 F L Temperature Source Temporal Temporal Pulse Rate 78 95 89 Respiratory Rate 18 20 H 20 H Blood Pressure 130/96 H 100/58 L 100/58 L Blood Pressure Mean 107 72 72 Pulse Ox 99 100 100 Oxygen Delivery Method Room Air Room Air [facility] <BENTLEY Daly - Last Filed: 12/24/23 22:14> [facility] Lab Data Labs: Laboratory Results - last 24 hr 12/24/23 12/24/23 18:40 18:50 WBC 18.8 H RBC 3.61 L Hgb 11.5 L Hct 33.8 L MCV 93.6 MCH 31.9 MCHC 34.0 RDW Std Deviation 46.8 H RDW Coeff of Oswaldo 13.8 Plt Count 308 MPV 10.7 Immature Gran % (Auto) 1.100 H Neut % (Auto) 61.7 Lymph % (Auto) 27.8 Grayson % (Auto) 7.2 Eos % (Auto) 1.3 Baso % (Auto) 0.9 Absolute Neuts (auto) 11.6 H Absolute Lymphs (auto) 5.23 H Nucleated RBC % 0 Differential Comment SEE COMMENT Platelet Estimate ADEQUATE RBC Morphology N CHROM Anisocytosis RARE Macrocytosis RARE Ovalocytes RARE PT 14.7 INR 1.2 Sodium 141 Potassium 4.5 Chloride 109 H Carbon Dioxide 25.0 Anion Gap 7 BUN 47 H Creatinine 1.46 H Est GFR (MDRD) Af Amer 64 Est GFR (MDRD) Non-Af 53 L BUN/Creatinine Ratio 32.2 H Glucose 143 H Lactic Acid 2.1 H* Calcium 8.3 L Total Bilirubin 0.70 Direct Bilirubin 0.15 AST 11 L ALT 20 Alkaline Phosphatase 42 L Total Protein 5.6 L Albumin 2.9 L Globulin 2.7 Lipase 25 Ethyl Alcohol < 3.0 Blood Type A NEGATIVE Antibody Screen NEGATIVE Radiography Diagnostic Testing: Clinical Impression(s) from Imaging Studies Abdomen/Pelvis CT 12/24/23 18:20 IMPRESSION: Large duodenal ulcer along the medial wall of the first portion of the duodenum. No free air to suggest perforation. Possible mild acute sigmoid diverticulitis. No focal fluid collection or free air. Increased size of a now 1.6 cm intermediate density cyst in the left upper renal pole. Recommend multiphase MR abdomen with and without contrast renal mass protocol to rule out renal cell carcinoma. Cirrhotic liver with no evidence of portal hypertension. Electronically Signed: Noé Seaman MD at 21:21 EST , Treatment and Re-Evaluation :: Patient appears to be in mild distress secondary to rectal bleeding. Patient states he does have some abdominal pain, feeling of nausea. Differential diagnose includes gastritis, gastric ulcer secondary to alcohol use, tobacco use, hemorrhoid, pancreatitis. Patient will receive a full abdominal workup including CBC BMP liver panel, PT/INR. Patient will receive an abdomen CT scan with IV contrast. Will do stool occult will be positive secondary to blood. Type and screen will be completed, patient received IV fluids, Zofran as well as IV Protonix. Upon initial evaluation, I do believe the patient will need to be admitted to the hospital. All radiologic examinations were read, reviewed by the emergency department attending. From these reads, a plan of care will be put in place. Patient is no obvious stress, vital signs remained stable. Patient's laboratory values shows a leukocytosis with a white blood count 18.8, patient's hemoglobin is 11.5, patient is baseline around 15, last known normal hemoglobin of 15 was in July 2023. Patient's chemistries showed some renal injury with a creatinine of 1.46, patient baseline is 0.7, lactic acid slightly elevated 2.1, alkaline phosphatase was low at 42, lipase was negative. Patient's alcohol level was 0. Patient was positive for blood in stool. Second to this big jump, patient will need to be admitted to the hospital. Currently waiting for the CT scan of the abdomen pelvis, I did reach out to oil field technician, they are currently working on trying to be read. Patient CT scan of the abdomen pelvis showed a large duodenal ulcer along the medial wall of the first portion of the duodenum. No free air to suggest perforation. Possible mild acute sigmoid diverticulitis, no focal fluid collection or free air. Increased size of a now 1.6 cm intermediate density cyst in the left upper renal pole. Cirrhotic liver. At this time, patient will need to be admitted to hospital. I will start the patient on IV Zosyn. I will speak to the hospitalist regarding admission. <Dr. Jae Bautista, DO - Last Filed: 12/24/23 22:17> [facility] Narrative Medical decision making narrative: Patient appears to be in mild distress secondary to rectal bleeding. Patient states he does have some abdominal pain, feeling of nausea. Differential diagnose includes gastritis, gastric ulcer secondary to alcohol use, tobacco use, hemorrhoid, pancreatitis. Patient will receive a full abdominal workup including CBC BMP liver panel, PT/INR. Patient will receive an abdomen CT scan with IV contrast. Will do stool occult will be positive secondary to blood. Type and screen will be completed, patient received IV fluids, Zofran as well as IV Protonix. Upon initial evaluation, I do believe the patient will need to be admitted to the hospital. All radiologic examinations were read, reviewed by the emergency department attending. From these reads, a plan of care will be put in place. Patient is no obvious stress, vital signs remained stable. Patient's laboratory values shows a leukocytosis with a white blood count 18.8, patient's hemoglobin is 11.5, patient is baseline around 15, last known normal hemoglobin of 15 was in July 2023. Patient's chemistries showed some renal injury with a creatinine of 1.46, patient baseline is 0.7, lactic acid slightly elevated 2.1, alkaline phosphatase was low at 42, lipase was negative. Patient's alcohol level was 0. Patient was positive for blood in stool. Second to this big jump, patient will need to be admitted to the hospital. Currently waiting for the CT scan of the abdomen pelvis, I did reach out to oil field technician, they are currently working on trying to be read. Patient CT scan of the abdomen pelvis showed a large duodenal ulcer along the medial wall of the first portion of the duodenum. No free air to suggest perforation. Possible mild acute sigmoid diverticulitis, no focal fluid collection or free air. Increased size of a now 1.6 cm intermediate density cyst in the left upper renal pole. Cirrhotic liver. At this time, patient will need to be admitted to hospital. I will start the patient on IV Zosyn. I will speak to the hospitalist regarding admission. This patient was seen with a PA/DIRECTOR WEB Individually assessed they patient including history and physical. I have reviewed everything on the chart that is available and agree with the documentation provided by the PA/DIRECTOR WEB including discussion about the assessment, treatment plan, discussion, and return precautions. Patient presenting with epigastric pain, GI bleed with history of alcohol abuse. He states initially had black stools which turned red. He has had diarrhea. Blood work was obtained and he has a leukocytosis of 18.8. Hemoglobin 11.5 which does not seem terribly low however compared with his baseline of over 15 this is low. Patient was typed and screened but I do not believe needs a transfusion just yet. Creatinine is elevated at 1.46. Lactic acid minimally elevated at 2.1. Patient given IV Protonix. Pain was controlled. CT abdomen pelvis shows a large duodenal ulcer, cirrhotic liver, diverticulitis. Patient given Zosyn to cover for diverticulitis. Discussed with hospitalist for admission after speaking with Dr. Patino. Lab Data Attestation: I reviewed the patient's lab results. Labs: Laboratory Results - last 24 hr 12/24/23 12/24/23 18:40 18:50 WBC 18.8 H RBC 3.61 L Hgb 11.5 L Hct 33.8 L MCV 93.6 MCH 31.9 MCHC 34.0 RDW Std Deviation 46.8 H RDW Coeff of Oswaldo 13.8 Plt Count 308 MPV 10.7 Immature Gran % (Auto) 1.100 H Neut % (Auto) 61.7 Lymph % (Auto) 27.8 Grayson % (Auto) 7.2 Eos % (Auto) 1.3 Baso % (Auto) 0.9 Absolute Neuts (auto) 11.6 H Absolute Lymphs (auto) 5.23 H Nucleated RBC % 0 Differential Comment SEE COMMENT Platelet Estimate ADEQUATE RBC Morphology N CHROM Anisocytosis RARE Macrocytosis RARE Ovalocytes RARE PT 14.7 INR 1.2 Sodium 141 Potassium 4.5 Chloride 109 H Carbon Dioxide 25.0 Anion Gap 7 BUN 47 H Creatinine 1.46 H Est GFR (MDRD) Af Amer 64 Est GFR (MDRD) Non-Af 53 L BUN/Creatinine Ratio 32.2 H Glucose 143 H Lactic Acid 2.1 H* Calcium 8.3 L Total Bilirubin 0.70 Direct Bilirubin 0.15 AST 11 L ALT 20 Alkaline Phosphatase 42 L Total Protein 5.6 L Albumin 2.9 L Globulin 2.7 Lipase 25 Ethyl Alcohol < 3.0 Blood Type A NEGATIVE Antibody Screen NEGATIVE Radiography Diagnostic Testing: Clinical Impression(s) from Imaging Studies Abdomen/Pelvis CT 12/24/23 18:20 IMPRESSION: Large duodenal ulcer along the medial wall of the first portion of the duodenum. No free air to suggest perforation. Possible mild acute sigmoid diverticulitis. No focal fluid collection or free air. Increased size of a now 1.6 cm intermediate density cyst in the left upper renal pole. Recommend multiphase MR abdomen with and without contrast renal mass protocol to rule out renal cell carcinoma. Cirrhotic liver with no evidence of portal hypertension. Electronically Signed: Noé Seaman MD at 21:21 EST , Discharge Plan Dx/Rx/DC Orders Clinical Impression: JOVANA (acute kidney injury), Alcohol abuse, Diverticulitis, Rectal bleed, Abdominal pain, Duodenal ulcer Disposition Disposition: Acute Care [facility]
[2023-12-24 18:53] LABS: Absolute Lymphocyte Count 5.23 X10^3/uL (0.83-4.51); Absolute Neutrophil Count 11.6 X10^3/uL (2.0-7.7); Basophil# 0.16 X10^3/uL; Basophil% 0.9 % (0-1); Eosinophil# 0.25 X10^3/uL; Eosinophils% 1.3 % (0-5); Hematocrit 33.8 % (40-54); Hemoglobin 11.5 g/dL (13.0-16.5); Lymphocyte # 5.23 X10^3/ul (0.83-4.51); Lymphocyte % 27.8 % (19-41); Mean Corpuscular Hgb 31.9 pg (27.0-32.0); Mean Corpuscular Volume 93.6 fL (80-94); Mean Platelet Vol. 10.7 fl (6.2-12.0); Monocyte# 1.36 X10^3/uL; Monocyte% 7.2 % (0-10); NRBC Flagged by Analyzer 0 % (0-5); Neutrophil # 11.57 X10^3/uL (2.7-7.7); Neutrophil % 61.7 % (47-70); POSITIVE DIFFERENTIAL YES; POSITIVE MORPHOLOGY YES; Platelet Count 308 K/mm3 (150-450); RBC Distribution Width CV 13.8 % (11.6-14.6); RBC Distribution Width SD 46.8 fl (35.1-43.9); Red Blood Count 3.61 M/mm3 (4.6-6.2); White Blood Count 18.8 K/mm3 (4.4-11.0)
[2023-12-24 19:08] LABS: Alcohol, Blood (Medical)-Serum < 3.0 mg/dL
[2023-12-24 19:11] LABS: AST(SGOT) 11 U/L (15-37); Alanine Aminotransfer ALT/SGPT 20 U/L (16-61); Albumin, Serum 2.9 g/dL (3.2-5.0); Alkaline Phosphatase 42 U/L (45-117); Anion Gap 7 (5-15); BUN 47 mg/dL (7-18); BUN/Creat Ratio 32.2 RATIO (10-20); Bilirubin, Direct 0.15 mg/dL (0.00-0.30); Calcium,Total 8.3 mg/dL (8.5-10.1); Chloride 109 mmol/L (98-107); Creatinine, Serum 1.46 mg/dL (0.70-1.30); EST Glomerular Filtration Rate 53 mL/min (>60); Est Glom Filt Rate - Afr Amer 64 mL/min (>60); Globulin 2.7 g/dL (2.2-4.2); Glucose 143 mg/dL (74-106); Lipase 25 U/L (13-75); Potassium 4.5 mmol/L (3.5-5.1); Protein, Total 5.6 g/dL (6.4-8.2); Sodium Level 141 mmol/L (136-145)
[2023-12-24 19:16] LABS: Differential Indicated SCAN CRITERIA MET
[2023-12-24 19:16] LABS: International Normalized Ratio 1.2; Prothrombin Time (Protime)PT. 14.7 SECONDS (11.7-14.9)
[2023-12-24] MEDS: 0.9% Normal Saline (1000mL) 1,000 ML 1000 ML IV (19:16)
[2023-12-24] MEDS: Ondansetron 4 MG/2 ML Vial IV (19:16)
[2023-12-24] MEDS: Pantoprazole Sodium 80 MG in 0.9% Normal Saline (50mL Bag) 15 ML 420 MG IV BOLUS (19:16)
[2023-12-24 19:18] VITALS: BMI 32.5
[2023-12-24 19:18] LABS: Anisocytosis RARE; Macrocytosis RARE; Ovalocyte RARE; Platelet Estimate ADEQUATE (ADEQ); Red Cell Morphology N CHROM NORMAL (NORM C&C)
[2023-12-24 19:33] LABS: Lactic Acid 2.1 mmol/L (0.4-1.9)
[2023-12-24 21:56] VITALS: BP 100/58; PULSE 95; RESP 20; TEMP 36.3; O2SAT 100
[2023-12-24 21:59] VITALS: BP 100/58; PULSE 89; RESP 20; TEMP 36.3; O2SAT 100
[2023-12-24] MEDS: Piperacil/Tazobactam 3.375 GM in 0.9% Normal Saline (50mL MB+) 50 ML IV (22:15)
--- NOTE | 2023-12-24 22:28 | PCM.HP.STD ---
[facility] - General General Date of Admission: 12/24/23 Date of Service: 12/24/23 Chief Complaint: Dark and black stool since yesterday HPI Narrative LUIS BRANDON, is a 58 M with history of chronic alcohol use and arthritis on meloxicam came to ED for dark and black stools since yesterday. Patient stated this started last evening with a darker stool and he had 4 5 today which was dark to black tarry stool. He also complained of abdominal pain which is mostly upper abdomen near epigastric region that started yesterday. He describes it sharp, stabbing in xiphisternal region without radiation. He also feels mild lower abdominal pain but is more concerned of upper abdominal pain. Patient has history of chronic alcohol use Patient has history of chronic alcohol use since teenager about 6 bottles of Fire [place] along with 4-5 beers every day since teenage. He said he was told by his PCP that his liver is sick but not cirrhosis yet. On the top he also takes meloxicam 15 mg for arthritis for last 3 months. He denies prior history of GI bleed and never had EGD. In ED, his blood pressure initially was 130/96 but dropped in the 90s while I was in the ER but charted as 100/58. Heart rate in 80s to 90s per minute. Afebrile. No hypoxia or tachypnea. Patient had CT abdomen which shows cirrhosis but no ascites Patient was started on IV fluid resuscitation and pantoprazole 80 mg bolus and further admitted [facility] Medical History Alcohol use Arthritis Cardiology follow-up encounter CHF (congestive heart failure) Chronic cough COPD (chronic obstructive pulmonary disease) Diabetes High cholesterol History of stress test HTN (hypertension) Insomnia Smoker Wears dentures Wears glasses Wears hearing aid Home Medications aspirin 81 mg tablet,delayed release 81 mg PO DAILY 05/07/23 [History Last Taken 07/01/23] fenofibrate nanocrystallized 145 mg tablet 145 mg PO DAILY 05/07/23 [History Last Taken Unknown] icosapent ethyl 1 gram capsule (Vascepa) 2 g PO BID 05/07/23 [History Last Taken Unknown] losartan 25 mg tablet 25 mg PO DAILY 05/07/23 [History Last Taken Unknown] metoprolol succinate 25 mg tablet,extended release 24 hr 25 mg PO DAILY 05/07/23 [History Last Taken Unknown] albuterol sulfate 90 mcg/actuation breath activated powder inhaler 2 inh inhalation Q6H PRN shortness of breath 06/23/23 [History Last Taken Unknown] atorvastatin 40 mg tablet 40 mg PO DAILY 06/23/23 [History Last Taken Unknown] bumetanide 0.5 mg tablet 0.5 mg PO DAILY 06/23/23 [History Last Taken Unknown] empagliflozin 10 mg tablet (Jardiance) 10 mg PO DAILY 06/23/23 [History Last Taken Unknown] multivitamin 1 tab PO DAILY 06/23/23 [History Last Taken Unknown] trazodone 100 mg tablet 100 mg PO QHS PRN SLEEPING 06/23/23 [History Last Taken Unknown] umeclidinium 62.5 mcg-vilanterol 25 mcg/actuation powdr for inhalation (Anoro Ellipta) 1 inh inhalation DAILY 06/23/23 [History Last Taken Unknown] oxycodone-acetaminophen 5 mg-325 mg tablet 1 - 2 tab PO Q6H PRN pain 3 days #14 tabs 07/07/23 [Rx Last Taken Unknown] icosapent ethyl 1 gram capsule (Vascepa) 2 g PO BID 12/24/23 [History Last Taken Unknown] meloxicam 15 mg tablet 15 mg PO DAILY 12/24/23 [History Last Taken Unknown] Allergy/AdvReac Type Severity Reaction Status Date / Time No Known Allergies Allergy Verified 12/24/23 18:03 Family History Mother Hypertension Arthritis Surgical History History of umbilical hernia repair S/P carpal tunnel release S/P right knee surgery Total knee replacement status Social History Smoking Status: Current every day smoker tobacco type: cigarettes alcohol intake: current alcohol intake frequency: a few times a week substance use type: former substance user ROS ROS Narrative Constitutional: Reports fatigue and weakness. No fever. HEENT: Reports systems reviewed and no addt'l complaints, except as documented Respiratory/Chest: No acute shortness of breath or respiratory distress or wheezing. CVS: Denies chest pain pressure or tightness Gastrointestinal: No vomiting or hematemesis but nausea. Abdominal pain and melena as described in HPI Genitourinary: Denies burning urination or new urinary tract symptoms Musculoskeletal: Chronic joint pain from arthritis. Right TKR. No acute joint pain or limited range of motion. No acute injury Neurologic: Denies seizure-like symptoms. skin: No ulcer. No rash Endocrinology: Reports systems reviewed and no addt'l complaints, except as documented Hematologic/Lymphatic: Reports systems reviewed and no addt'l complaints, except as documented Rest 14 ROS are negative except as mentioned in HPI Vital Signs Vital Signs Vital Signs: 12/24/23 18:03 12/24/23 21:56 12/24/23 21:59 Temperature 96.2 F L 97.3 F L 97.3 F L Temperature Source Temporal Temporal Pulse Rate 78 95 89 Respiratory Rate 18 20 H 20 H Blood Pressure 130/96 H 100/58 L 100/58 L Blood Pressure Mean 107 72 72 Pulse Ox 99 100 100 Oxygen Delivery Method Room Air Room Air Weight Weight: 220 lb 14.451 oz Body Mass Index (BMI) 32.5 Results Lab / Micro Data 12/24/23 18:40 12/24/23 18:40 Labs: Laboratory Results - last 24 hr 12/24/23 18:40: WBC 18.8 H, RBC 3.61 L, Hgb 11.5 L, Hct 33.8 L, MCV 93.6, MCH 31.9, MCHC 34.0, RDW Std Deviation 46.8 H, RDW Coeff of Oswaldo 13.8, Plt Count 308, MPV 10.7, Immature Gran % (Auto) 1.100 H, Neut % (Auto) 61.7, Lymph % (Auto) 27.8, [place] % (Auto) 7.2, Eos % (Auto) 1.3, Baso % (Auto) 0.9, Absolute Neuts (auto) 11.6 H, Absolute Lymphs (auto) 5.23 H, Nucleated RBC % 0, Differential Comment SEE COMMENT, Platelet Estimate ADEQUATE, RBC Morphology N CHROM, Anisocytosis RARE, Macrocytosis RARE, Ovalocytes RARE, Sodium 141, Potassium 4.5, Chloride 109 H, Carbon Dioxide 25.0, Anion Gap 7, BUN 47 H, Creatinine 1.46 H, Est GFR (MDRD) Af Amer 64, Est GFR (MDRD) Non-Af 53 L, BUN/Creatinine Ratio 32.2 H, Glucose 143 H, Lactic Acid 2.1 H*, Calcium 8.3 L, Total Bilirubin 0.70, Direct Bilirubin 0.15, AST 11 L, ALT 20, Alkaline Phosphatase 42 L, Total Protein 5.6 L, Albumin 2.9 L, Globulin 2.7, Lipase 25, Ethyl Alcohol < 3.0, Blood Type A NEGATIVE, Antibody Screen NEGATIVE 12/24/23 18:50: PT 14.7, INR 1.2 Micro: Microbiology 12/24/23 18:30 Stool Stool Occult Blood (REYMUNDO) - Final Occult Blood Positive Imaging Radiology Impression Abdomen/Pelvis CT 12/24/23 18:20 IMPRESSION: Large duodenal ulcer along the medial wall of the first portion of the duodenum. No free air to suggest perforation. Possible mild acute sigmoid diverticulitis. No focal fluid collection or free air. Increased size of a now 1.6 cm intermediate density cyst in the left upper renal pole. Recommend multiphase MR abdomen with and without contrast renal mass protocol to rule out renal cell carcinoma. Cirrhotic liver with no evidence of portal hypertension. Electronically Signed: Noé Seaman MD at 21:21 EST , Assessment & Plan Assessment/Plan (1) Upper GI bleed: PLAN: Plan This is 58-year-old gentleman being admitted for black/melena for last 2 days along with abdominal pain. 1. Upper GI bleed: Patient blood pressure in the 90s to 100s systolic. Admitted as inpatient status and PCU. IV fluid resuscitation Ringer lactate 1 L stat and then normal saline +20 mEq IV KCl at 100 mill per hour. Pantoprazole 80 mg IV then 40 mg every 12. Octreotide drip after bolus ordered. Ceftriaxone 1 g IV daily. GI consulted. Type and crossmatch. H&H every 6 hourly. 2. Predominantly upper abdominal pain probably from duodenal ulcer and compensated alcoholic cirrhosis as reported in CT abdomen with history of chronic alcohol use: CT abdomen/pelvis individually reviewed and liver is nodular consistent with cirrhosis. No prominent signs of portal hypertension. Cirrhosis may be new diagnosis.Counseling was done to quit alcohol. CIWA protocol to watch for alcohol withdrawal with lorazepam protocol. 3. JOVANA: Most likely prerenal from upper GI bleed. Baseline creatinine is 0.8 in July 2023. Admitted with creatinine 1.46. IV fluid resuscitation. Monitor kidney function daily. 4. Diabetes mellitus type 2: Accu-Chek insulin coverage with Humalog sliding scale. Glucose in BMP is 143. 5. COPD: Patient on an oral Ellipta scheduled inhaler and albuterol as needed. Continued. 6. Dyslipidemia: Patient on Vascepa 2 g twice daily continued. 7. Hypertension: Patient on metoprolol and losartan. Because of low blood pressure we will hold it for now. 8. Chronic degenerative arthritis status post right TKR and bilateral hand arthritis: Patient on meloxicam 15 mg daily which is held and probably needs to be discontinued at the time of discharge. DVT prophylaxis: Pharmacological prophylaxis contraindicated. Bilateral SCDs. Living will/advanced directive/end of life care: Patient does not have living will or advanced directive. He does not have definite power of patent prosecution attorney for health after discussion of benefits/risks procedures involved with full code, DNR CC arrest and DNR CC, the patient opted for full code. Patient does want artificial life support including intubation, tube feed, ventilator and/chest compression, central venous catheter, vasopressor and DC shock if needed Total time spent in [id number] encounter in discussion of advanced directive 17 minutes. Microbiology Past 72 Hours 12/24/23 18:30 Stool Stool Occult Blood (REYMUNDO) - Final Occult Blood Positive Laboratory Results 12/24/23 18:40: WBC 18.8 H, RBC 3.61 L, Hgb 11.5 L, Hct 33.8 L, MCV 93.6, MCH 31.9, MCHC 34.0, RDW Std Deviation 46.8 H, RDW Coeff of Oswaldo 13.8, Plt Count 308, MPV 10.7, Immature Gran % (Auto) 1.100 H, Neut % (Auto) 61.7, Lymph % (Auto) 27.8, [place] % (Auto) 7.2, Eos % (Auto) 1.3, Baso % (Auto) 0.9, Absolute Neuts (auto) 11.6 H, Absolute Lymphs (auto) 5.23 H, Nucleated RBC % 0, Differential Comment SEE COMMENT, Platelet Estimate ADEQUATE, RBC Morphology N CHROM, Anisocytosis RARE, Macrocytosis RARE, Ovalocytes RARE, Sodium 141, Potassium 4.5, Chloride 109 H, Carbon Dioxide 25.0, Anion Gap 7, BUN 47 H, Creatinine 1.46 H, Est GFR (MDRD) Af Amer 64, Est GFR (MDRD) Non-Af 53 L, BUN/Creatinine Ratio 32.2 H, Glucose 143 H, Lactic Acid 2.1 H*, Calcium 8.3 L, Total Bilirubin 0.70, Direct Bilirubin 0.15, AST 11 L, ALT 20, Alkaline Phosphatase 42 L, Total Protein 5.6 L, Albumin 2.9 L, Globulin 2.7, Lipase 25, Ethyl Alcohol < 3.0, Blood Type A NEGATIVE, Antibody Screen NEGATIVE 12/24/23 18:50: PT 14.7, INR 1.2 Clinical Impression(s) from Imaging Studies Abdomen/Pelvis CT 12/24/23 18:20 IMPRESSION: Large duodenal ulcer along the medial wall of the first portion of the duodenum. No free air to suggest perforation. Possible mild acute sigmoid diverticulitis. No focal fluid collection or free air. Increased size of a now 1.6 cm intermediate density cyst in the left upper renal pole. Recommend multiphase MR abdomen with and without contrast renal mass protocol to rule out renal cell carcinoma. Cirrhotic liver with no evidence of portal hypertension. Charges/Coding Visit Charges Inpatient E&M: 76863 Init Hosp L3 Procedures Hospitalists Procedures: 46400 Advncd Care Plan 30 Min
[2023-12-24 22:51] LABS: Reflex Lactate? Y
[2023-12-24] MEDS: Lactated Ringers 1,000 ML 999 ML IV (22:56)
[2023-12-24 23:03] LABS: Magnesium 1.8 mg/dL (1.6-2.6); Phosphorus 2.5 mg/dL (2.5-4.9)
[2023-12-24 23:05] VITALS: BP 100/55; PULSE 73; RESP 18; TEMP 36.6; O2SAT 98
[2023-12-24 23:22] LABS: Hematocrit 27.3 % (40-54); Hemoglobin 9.1 g/dL (13.0-16.5)
[2023-12-24 23:44] VITALS: BMI 33.9
[2023-12-24 23:49] VITALS: BP 117/72; PULSE 105; RESP 20; TEMP 36.6; O2SAT 100
[2023-12-25] VITALS (9 sets, daily range): BP systolic 94–110; BP diastolic 40–63; PULSE 72–103; RESP 16–18; TEMP 36–37.1; O2SAT 93–100; BMI 33.9
[2023-12-25 00:16] LABS: Bedside Glucose 98 mg/dL (74-106)
[2023-12-25] MEDS: Ondansetron 4 MG/2 ML Vial IV (00:21)
[2023-12-25] MEDS: oxyCODONE 5 MG Tablet PO (00:21)
[2023-12-25] MEDS: 0.9% Saline Lock 10 ML Syringe IV (00:21)
[2023-12-25] MEDS: Pantoprazole Sodium 40 MG in 0.9% Normal Saline (100mL MB+) 100 ML 330 MG IV ×3 (00:27→20:33)
[2023-12-25] MEDS: Octreotide 0.05 MG in Dextrose 5%-Water (50mL Bag) 50 ML 202 MG IV (00:49)
[2023-12-25] MEDS: KCl 20MEQ in D5NS 20 MEQ/1,000 ML IV.SOLN. 100 MEQ IV ×2 (00:50→11:45)
[2023-12-25] MEDS: Ceftriaxone 1 GM/50 ML BAG IV ×2 (01:03→20:55)
[2023-12-25] MEDS: Octreotide 0.5 MG in Dextrose 5%-Water (250mL Bag) 249 ML 25 MG CONT INF ×3 (01:19→20:34)
--- NOTE | 2023-12-25 01:41 | NURSING ---
pt home meds locked in the med room, receipt given to pt. List of meds written in the bag. One med Vascepa NF pt own meds being use for administration. 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 Pt agrees for home meds being lock at this time.
[2023-12-25 04:57] LABS: Absolute Lymphocyte Count 4.83 X10^3/uL (0.83-4.51); Absolute Neutrophil Count 12.4 X10^3/uL (2.0-7.7); Basophil# 0.11 X10^3/uL; Basophil% 0.6 % (0-1); Eosinophil# 0.21 X10^3/uL; Eosinophils% 1.1 % (0-5); Hematocrit 26.3 % (40-54); Hemoglobin 8.8 g/dL (13.0-16.5); Lymphocyte # 4.83 X10^3/ul (0.83-4.51); Lymphocyte % 25.3 % (19-41); Mean Corp Hgb Conc 33.5 g/dL (32-36); Mean Corpuscular Hgb 32.4 pg (27.0-32.0); Mean Corpuscular Volume 96.7 fL (80-94); Mean Platelet Vol. 11.1 fl (6.2-12.0); Monocyte# 1.37 X10^3/uL; Monocyte% 7.2 % (0-10); NRBC Flagged by Analyzer 0 % (0-5); Neutrophil # 12.41 X10^3/uL (2.7-7.7); Platelet Count 235 K/mm3 (150-450); RBC Distribution Width CV 14.1 % (11.6-14.6); RBC Distribution Width SD 48.9 fl (35.1-43.9); Red Blood Count 2.72 M/mm3 (4.6-6.2); White Blood Count 19.1 K/mm3 (4.4-11.0)
[2023-12-25 05:17] LABS: ALB/GLOB Ratio 1.1 RATIO (0.9-2.4); AST(SGOT) 12 U/L (15-37); Alanine Aminotransfer ALT/SGPT 15 U/L (16-61); Albumin, Serum 2.7 g/dL (3.2-5.0); Alkaline Phosphatase 38 U/L (45-117); Anion Gap 6 (5-15); BUN 59 mg/dL (7-18); BUN/Creat Ratio 42.4 RATIO (10-20); Calcium,Total 7.8 mg/dL (8.5-10.1); Chloride 113 mmol/L (98-107); Creatinine, Serum 1.39 mg/dL (0.70-1.30); EST Glomerular Filtration Rate 56 mL/min (>60); Est Glom Filt Rate - Afr Amer 67 mL/min (>60); Estimated Creatinine Clearance 68.87 ml/min; Globulin 2.5 g/dL (2.2-4.2); Glucose 174 mg/dL (74-106); Potassium 4.9 mmol/L (3.5-5.1); Protein, Total 5.2 g/dL (6.4-8.2); Sodium Level 140 mmol/L (136-145)
[2023-12-25 07:07] LABS: Bedside Glucose 116 mg/dL (74-106)
--- NOTE | 2023-12-25 08:09 | PCM.PN.HOSP ---
Reason for Visit Reason for Visit: Diagnoses Gastrointestinal hemorrhage, unspecified (12/24/23) Subjective Subjective This is 58-year-old gentleman being admitted for black/melena for last 2 days along with abdominal pain. Objective Data Objective Data Vital Signs: Vital Signs Temp Pulse Resp BP Pulse Ox O2 Del Method O2 Flow Rate 97.1 F L 85 18 105/63 97 Nasal Cannula 2 12/25/23 04:17 12/25/23 04:17 12/25/23 04:17 12/25/23 04:17 12/25/23 04:17 12/25/23 04:30 12/25/23 04:30 Oxygen Flow Rate (L/min) 2 Oxygen Delivery Method Nasal Cannula Weight: 104.3 kg Body Mass Index (BMI) 33.9 Intake & Output: Intake and Output for Last 24 Hours 12/23/23 12/24/23 12/25/23 23:59 23:59 23:59 Intake Total 2084 / 2084 210.5 / 210.5 Balance 2084 210.5 / 210.5 Lab / Micro Data 12/25/23 11:45 12/25/23 04:27 Labs: Laboratory Results - last 24 hr 12/24/23 18:40: WBC 18.8 H, RBC 3.61 L, Hgb 11.5 L, Hct 33.8 L, MCV 93.6, MCH 31.9, MCHC 34.0, RDW Std Deviation 46.8 H, RDW Coeff of Oswaldo 13.8, Plt Count 308, MPV 10.7, Immature Gran % (Auto) 1.100 H, Neut % (Auto) 61.7, Lymph % (Auto) 27.8, [place] % (Auto) 7.2, Eos % (Auto) 1.3, Baso % (Auto) 0.9, Absolute Neuts (auto) 11.6 H, Absolute Lymphs (auto) 5.23 H, Nucleated RBC % 0, Differential Comment SEE COMMENT, Platelet Estimate ADEQUATE, RBC Morphology N CHROM, Anisocytosis RARE, Macrocytosis RARE, Ovalocytes RARE, Sodium 141, Potassium 4.5, Chloride 109 H, Carbon Dioxide 25.0, Anion Gap 7, BUN 47 H, Creatinine 1.46 H, Est GFR (MDRD) Af Amer 64, Est GFR (MDRD) Non-Af 53 L, BUN/Creatinine Ratio 32.2 H, Glucose 143 H, Lactic Acid 2.1 H*, Calcium 8.3 L, Phosphorus 2.5, Magnesium 1.8, Total Bilirubin 0.70, Direct Bilirubin 0.15, AST 11 L, ALT 20, Alkaline Phosphatase 42 L, Total Protein 5.6 L, Albumin 2.9 L, Globulin 2.7, Lipase 25, Ethyl Alcohol < 3.0, Blood Type A NEGATIVE, Antibody Screen NEGATIVE 12/24/23 18:50: PT 14.7, INR 1.2 12/24/23 22:56: Lactic Acid 1.0 12/24/23 23:18: Hgb 9.1 L, Hct 27.3 L 12/24/23 23:58: POC Glucose 98 12/25/23 04:27: WBC 19.1 H, RBC 2.72 L, Hgb 8.8 L, Hct 26.3 L, MCV 96.7 H, MCH 32.4 H, MCHC 33.5, RDW Std Deviation 48.9 H, RDW Coeff of Oswaldo 14.1, Plt Count 235, MPV 11.1, Immature Gran % (Auto) 0.800, Neut % (Auto) 65.0, Lymph % (Auto) 25.3, [place] % (Auto) 7.2, Eos % (Auto) 1.1, Baso % (Auto) 0.6, Absolute Neuts (auto) 12.4 H, Absolute Lymphs (auto) 4.83 H, Nucleated RBC % 0, Sodium 140, Potassium 4.9, Chloride 113 H, Carbon Dioxide 21.0, Anion Gap 6, BUN 59 H, Creatinine 1.39 H, Estim Creat Clear Calc 68.87, Est GFR (MDRD) Af Amer 67, Est GFR (MDRD) Non-Af 56 L, BUN/Creatinine Ratio 42.4 H, Glucose 174 H, Calcium 7.8 L, Total Bilirubin 0.20, AST 12 L, ALT 15 L, Alkaline Phosphatase 38 L, Total Protein 5.2 L, Albumin 2.7 L, Globulin 2.5, Albumin/Globulin Ratio 1.1 12/25/23 06:21: POC Glucose 116 H Micro: Microbiology 12/24/23 18:30 Stool Stool Occult Blood (REYMUNDO) - Final Occult Blood Positive Radiography Diagnostic Testing: Radiology Impression Abdomen/Pelvis CT 12/24/23 18:20 IMPRESSION: Large duodenal ulcer along the medial wall of the first portion of the duodenum. No free air to suggest perforation. Possible mild acute sigmoid diverticulitis. No focal fluid collection or free air. Increased size of a now 1.6 cm intermediate density cyst in the left upper renal pole. Recommend multiphase MR abdomen with and without contrast renal mass protocol to rule out renal cell carcinoma. Cirrhotic liver with no evidence of portal hypertension. Electronically Signed: Noé Seaman MD at 21:21 EST , Physical Exam Narrative GENERAL: cooperative HEENT: Atraumatic; normocephalic EYES; Anicteric, Normal Conjunctiva NECK; supple, normal thyroid, RESPIRATORY: Diminished to auscultation CARDIOVASCULAR: Regular S1 S2, GI: soft, normoactive bowel sounds, : No Renal angle tenderness; EXTREMITIES: No edema, no clubbing, MUSCULOSKELETAL: no muscle wasting NEURO: Awake; no lateralizing signs. SKIN: No Rash PSYCH; Flat affect Assessment & Plan Assessment/Plan (1) Upper GI bleed: PLAN: Plan This is 58-year-old gentleman being admitted for black/melena for last 2 days along with abdominal pain. Acute GI bleed ? Suspected to be secondary to upper GI bleed patient admitted to a monitored bed given his relatively low blood pressure resuscitated with IV fluid started on Protonix octreotide drip as well as Rocephin patient was started on crossmatch for 2 unit PRBC H&H ordered every 6 hours and consultation placed to GI for possible endoscopic evaluation 2. Anemia ? Secondary to acute blood loss anemia. Monitoring H&H with every 6 hours with plan for transfusion as patient is deemed to be symptomatic while hemoglobin falls below 7 additional management as discussed above 3. Alcoholic cirrhosis ? As reported by CT. Patient currently does not have any signs of portal hypertension 4. Chronic alcohol dependence ? Patient was placed on CIWA protocol with lorazepam as needed 5. Acute kidney injury ? Baseline creatinine from July 2023 was 0.8, creatinine on admission was 1.43 patient is on IV fluid with subsequent monitoring of electrolytes 6. COPD ? Currently not in exacerbation aerosol treatment continue 7. Diabetes mellitus type 2 ? Patient placed on Accu-Cheks before meals and at bedtime with sliding scale coverage 8. Dyslipidemia ? Patient is on Vascepa continued 9. Essential hypertension ? Patient blood pressure was relatively low, he is on losartan and metoprolol held on admission plan is to resume as soon as blood pressure stabilizes 10. Chronic degenerative arthritis -status post right TKR and bilateral hand arthritis: Patient on meloxicam 15 mg daily which is held and probably needs to be discontinued at the time of discharge. 11. DVT prophylaxis ? Chemoprophylaxis contraindicated in view of patient presentation placed on bilateral SCDs Time spent in the patient's overall evaluation,decision-making process, review of diagnostic data, adjustment of management, discussion with other providers, nursing nursing and ancillary staff involved in patient's care documentation, 50 Minutes Charges/Coding Visit Charges Inpatient E&M: 13465 Subs Hosp L3
--- NOTE | 2023-12-25 09:30 | CASEMGMT ---
VICTOR MANUEL ZURITA Assessment Face to Face with patient for initial transition planning/care coordination assessment. VICTOR MANUEL ZURITA introduced self and role at [facility], pt voices understanding. Pt is A&Ox4 and is resting comfortably in bed and is calm. Care providers, pharmacy, and demographics verified. Admitting dx: Upper GI Bleed LACE Strata: 2 PCP: Zach Specialists: Nereyda (Cardio in [place]), Courtney, and [facility] Preferred Pharmacy: [facility] Insurance: [facility] Prescription Benefit: Yes LNOK: Kali Hebert Marcie Johnston. Lives in [place] Living Arrangements: Pt lives alone in a single (ground) level apartment with a flat entrance. ADLs/IADLs: Ind Transportation: Pt states he uses [employer] DME: Denies use or needs at this time HHC/SNF: History at [facility] in 2021 x1 month for Pneumonia Pt?s goal:Home Plan: Pt 6=Click is 19. Pt denies the need for therapy to be ordered now. Pt states that he wants to DC home with no additional needs. Marques Dobbs RN, CM
[2023-12-25 11:41] LABS: Bedside Glucose 117 mg/dL (74-106)
[2023-12-25] MEDS: Empagliflozin 10 MG Tablet PO (11:52)
[2023-12-25 12:03] LABS: Hematocrit 22.8 % (40-54); Hemoglobin 7.8 g/dL (13.0-16.5)
[2023-12-25] MEDS: Ipratropium/Albuterol Sulfate 3 ML AMPUL.NEB INHALATION (19:43)
--- NOTE | 2023-12-25 20:01 | CON.PCM.GI_ITS ---
HPI Consult Data Date of Consult: 12/25/23 HPI Narrative Reason for Consultation: GI bleed HPI Narrative: LUIS BRANDON, is a 58 M with history of chronic alcohol use and arthritis on meloxicam came to ED for dark and black stools x 2 days. Patient stated this started last evening with a darker stool and he had 4 5 today which was dark to black tarry stool. He also complained of abdominal pain which is mostly upper abdomen near ep igastric region that started yesterday. He describes it sharp, stabbing in xiphisternal region without radiation. He also feels mild lower abdominal pain but is more concerned of upper abdominal pain. Patient has history of chronic alcohol use Patient has history of chronic alcohol use since teenager about 6 bottles of Fire ball along with 4-5 beers every day since teenage. He said he was told by his PCP that his liver is sick but not cirrhosis yet. On the top he also takes meloxicam 15 mg for arthritis for last 3 months. He denies prior history of GI bleed and never had EGD. In ED, his blood pressure initially was 130/96 but dropped in the 90s while I was in the ER but charted as 100/58. Heart rate in 80s to 90s per minute. Afebrile. No hypoxia or tachypnea. Patient had CT abdomen which shows cirrhosis [facility] Medical History Alcohol use Arthritis Cardiology follow-up encounter CHF (congestive heart failure) Chronic cough COPD (chronic obstructive pulmonary disease) Diabetes High cholesterol History of stress test HTN (hypertension) Insomnia Smoker Wears dentures Wears glasses Wears hearing aid Home Medications aspirin 81 mg tablet,delayed release 81 mg PO DAILY 05/07/23 [History Last Taken 07/01/23] fenofibrate nanocrystallized 145 mg tablet 145 mg PO DAILY 05/07/23 [History Last Taken Unknown] icosapent ethyl 1 gram capsule (Vascepa) 2 g PO BID 05/07/23 [History Last Taken Unknown] losartan 25 mg tablet 25 mg PO DAILY 05/07/23 [History Last Taken Unknown] metoprolol succinate 25 mg tablet,extended release 24 hr 25 mg PO DAILY 05/07/23 [History Last Taken Unknown] albuterol sulfate 90 mcg/actuation breath activated powder inhaler 2 inh inhalation Q6H PRN shortness of breath 06/23/23 [History Last Taken Unknown] atorvastatin 40 mg tablet 40 mg PO DAILY 06/23/23 [History Last Taken Unknown] bumetanide 0.5 mg tablet 0.5 mg PO DAILY 06/23/23 [History Last Taken Unknown] empagliflozin 10 mg tablet (Jardiance) 10 mg PO DAILY 06/23/23 [History Last Taken Unknown] multivitamin 1 tab PO DAILY 06/23/23 [History Last Taken Unknown] trazodone 100 mg tablet 100 mg PO QHS PRN SLEEPING 06/23/23 [History Last Taken Unknown] umeclidinium 62.5 mcg-vilanterol 25 mcg/actuation powdr for inhalation (Anoro Ellipta) 1 inh inhalation DAILY 06/23/23 [History Last Taken Unknown] oxycodone-acetaminophen 5 mg-325 mg tablet 1 - 2 tab PO Q6H PRN pain 3 days #14 tabs 07/07/23 [Rx Last Taken Unknown] icosapent ethyl 1 gram capsule (Vascepa) 2 g PO BID 12/24/23 [History Last Taken Unknown] meloxicam 15 mg tablet 15 mg PO DAILY 12/24/23 [History Last Taken Unknown] Allergy/AdvReac Type Severity Reaction Status Date / Time No Known Allergies Allergy Verified 12/24/23 18:03 Family History Mother Hypertension Arthritis Surgical History History of umbilical hernia repair S/P carpal tunnel release S/P right knee surgery Total knee replacement status Social History Smoking Status: Current every day smoker tobacco type: cigarettes alcohol intake: current alcohol intake frequency: a few times a week substance use type: former substance user ROS ROS Narrative Constitutional: Reports fatigue and weakness. No fever. HEENT: Reports systems reviewed and no addt'l complaints, except as documented Respiratory/Chest: No acute shortness of breath or respiratory distress or wheezing. CVS: Denies chest pain pressure or tightness Gastrointestinal: No vomiting or hematemesis but nausea. Abdominal pain and melena as described in HPI Genitourinary: Denies burning urination or new urinary tract symptoms Musculoskeletal: Chronic joint pain from arthritis. Right TKR. No acute joint pain or limited range of motion. No acute injury Neurologic: Denies seizure-like symptoms. skin: No ulcer. No rash Endocrinology: Reports systems reviewed and no addt'l complaints, except as documented Hematologic/Lymphatic: Reports systems reviewed and no addt'l complaints, except as documented Rest 14 ROS are negative except as mentioned in HPI Physical Exam Narrative GENERAL: cooperative HEENT: Atraumatic; normocephalic EYES; Anicteric, Normal Conjunctiva NECK; supple, normal thyroid, RESPIRATORY: Diminished to auscultation CARDIOVASCULAR: Regular S1 S2, GI: soft, normoactive bowel sounds, : No Renal angle tenderness; EXTREMITIES: No edema, no clubbing, MUSCULOSKELETAL: no muscle wasting NEURO: Awake; no lateralizing signs. SKIN: No Rash PSYCH; Flat affect Lab / Micro Data 12/25/23 11:45 12/25/23 04:27 Labs: Laboratory Results - last 24 hr 12/24/23 18:40: Phosphorus 2.5, Magnesium 1.8 12/24/23 22:56: Lactic Acid 1.0 12/24/23 23:18: Hgb 9.1 L, Hct 27.3 L 12/24/23 23:58: POC Glucose 98 12/25/23 04:27: WBC 19.1 H, RBC 2.72 L, Hgb 8.8 L, Hct 26.3 L, MCV 96.7 H, MCH 32.4 H, MCHC 33.5, RDW Std Deviation 48.9 H, RDW Coeff of Oswaldo 14.1, Plt Count 235, MPV 11.1, Immature Gran % (Auto) 0.800, Neut % (Auto) 65.0, Lymph % (Auto) 25.3, Carlton % (Auto) 7.2, Eos % (Auto) 1.1, Baso % (Auto) 0.6, Absolute Neuts (auto) 12.4 H, Absolute Lymphs (auto) 4.83 H, Nucleated RBC % 0, Sodium 140, Potassium 4.9, Chloride 113 H, Carbon Dioxide 21.0, Anion Gap 6, BUN 59 H, Creatinine 1.39 H, Estim Creat Clear Calc 68.87, Est GFR (MDRD) Af Amer 67, Est GFR (MDRD) Non-Af 56 L, BUN/Creatinine Ratio 42.4 H, Glucose 174 H, Calcium 7.8 L, Total Bilirubin 0.20, AST 12 L, ALT 15 L, Alkaline Phosphatase 38 L, Total Protein 5.2 L, Albumin 2.7 L, Globulin 2.5, Albumin/Globulin Ratio 1.1 12/25/23 06:21: POC Glucose 116 H 12/25/23 11:23: POC Glucose 117 H 12/25/23 11:45: Hgb 7.8 L, Hct 22.8 L Micro: Microbiology 12/24/23 18:30 Stool Stool Occult Blood (REYMUNDO) - Final Occult Blood Positive Imaging Radiology Impression Abdomen/Pelvis CT 12/24/23 18:20 IMPRESSION: Large duodenal ulcer along the medial wall of the first portion of the duodenum. No free air to suggest perforation. Possible mild acute sigmoid diverticulitis. No focal fluid collection or free air. Increased size of a now 1.6 cm intermediate density cyst in the left upper renal pole. Recommend multiphase MR abdomen with and without contrast renal mass protocol to rule out renal cell carcinoma. Cirrhotic liver with no evidence of portal hypertension. Electronically Signed: Noé Seaman MD at 21:21 EST , Assessment & Plan Assessment/Plan (1) Upper GI bleed: PLAN: Plan This is 58-year-old gentleman being admitted for black/melena for last 2 days along with abdominal pain. Upper GI bleed: Patient blood pressure in the 90s to 100s systolic. Admitted as inpatient status and PCU. IV fluid resuscitation Ringer lactate 1 L stat and then normal saline +20 mEq IV KCl at 100 mill per hour. Pantoprazole 80 mg IV then 40 mg every 12. Octreotide drip after bolus ordered. Ceftriaxone 1 g IV daily. The plan is for EGD tomorrow to look for signs of J bleeding, such as possible varies, poor guest, triopathy, cameras, erosion, peptic disease. He was explained alternatives, regress, benefits and risk, including bleeding, infection and . He will have an ASA of 3. Abdomen/Pelvis CT 12/24/23 18:20 IMPRESSION: Large duodenal ulcer along the medial wall of the first portion of the duodenum. No free air to suggest perforation. Possible mild acute sigmoid diverticulitis. No focal fluid collection or free air. Increased size of a now 1.6 cm intermediate density cyst in the left upper renal pole. Recommend multiphase MR abdomen with and without contrast renal mass protocol to rule out renal cell carcinoma. Cirrhotic liver with no evidence of portal hypertension. Charges/Coding Visit Charges Inpatient E&M: 78494 Init Hosp L3
[2023-12-25] MEDS: Phenobarbital 32.4 MG Tablet 64.7999999999999972 MG PO ×2 (20:37→23:37)
[2023-12-25] MEDS: Atorvastatin Calcium 40 MG Tablet PO (20:39)
[2023-12-25 23:29] LABS: Bedside Glucose 119 mg/dL (74-106)
[2023-12-26] VITALS (21 sets, daily range): BP systolic 88–126; BP diastolic 45–94; PULSE 77–97; RESP 16–20; TEMP 36.4–37.2; O2SAT 96–100; BMI 33.9; BMI 33.8
[2023-12-26 02:26] LABS: Bedside Glucose 111 mg/dL (74-106)
[2023-12-26] MEDS: Phenobarbital 32.4 MG Tablet 64.7999999999999972 MG PO ×5 (03:50→20:09)
[2023-12-26] MEDS: Dicyclomine 10 MG Capsule 20 MG PO (03:59)
[2023-12-26] MEDS: Octreotide 0.5 MG in Dextrose 5%-Water (250mL Bag) 249 ML 25 MG CONT INF ×2 (04:01→16:29)
[2023-12-26 04:45] LABS: Absolute Lymphocyte Count 2.75 X10^3/uL (0.83-4.51); Absolute Neutrophil Count 4.1 X10^3/uL (2.0-7.7); Basophil# 0.04 X10^3/uL; Basophil% 0.5 % (0-1); Eosinophil# 0.23 X10^3/uL; Hematocrit 18.9 % (40-54); Hemoglobin 6.4 g/dL (13.0-16.5); Lymphocyte # 2.75 X10^3/ul (0.83-4.51); Lymphocyte % 35.8 % (19-41); Mean Corp Hgb Conc 33.9 g/dL (32-36); Mean Corpuscular Hgb 32.3 pg (27.0-32.0); Mean Corpuscular Volume 95.5 fL (80-94); Monocyte# 0.51 X10^3/uL; Monocyte% 6.6 % (0-10); NRBC Flagged by Analyzer 0 % (0-5); Neutrophil # 4.09 X10^3/uL (2.7-7.7); Neutrophil % 53.3 % (47-70); Platelet Count 179 K/mm3 (150-450); RBC Distribution Width CV 14.2 % (11.6-14.6); RBC Distribution Width SD 47.7 fl (35.1-43.9); Red Blood Count 1.98 M/mm3 (4.6-6.2); White Blood Count 7.7 K/mm3 (4.4-11.0)
[2023-12-26 04:52] LABS: International Normalized Ratio 1.2; Prothrombin Time (Protime)PT. 15.3 SECONDS (11.7-14.9)
[2023-12-26 04:53] LABS: Partial Thromboplast Time 30.6 Seconds (24.1-36.2)
[2023-12-26 05:12] LABS: AST(SGOT) 14 U/L (15-37); Alanine Aminotransfer ALT/SGPT 17 U/L (16-61); Albumin, Serum 2.7 g/dL (3.2-5.0); Alkaline Phosphatase 35 U/L (45-117); Anion Gap 5 (5-15); BUN 33 mg/dL (7-18); Calcium,Total 8.2 mg/dL (8.5-10.1); Chloride 112 mmol/L (98-107); EST Glomerular Filtration Rate 82 mL/min (>60); Est Glom Filt Rate - Afr Amer 99 mL/min (>60); Estimated Creatinine Clearance 95.83 ml/min; Globulin 2.4 g/dL (2.2-4.2); Glucose 111 mg/dL (74-106); Magnesium 2.1 mg/dL (1.6-2.6); Phosphorus 3.4 mg/dL (2.5-4.9); Potassium 4.3 mmol/L (3.5-5.1); Protein, Total 5.1 g/dL (6.4-8.2); Sodium Level 139 mmol/L (136-145)
--- NOTE | 2023-12-26 05:55 | EKG12_ITS ---
Test Reason : AM EKG Blood Pressure : / mmHG Vent. Rate : 089 BPM Atrial Rate : 089 BPM P-R Int : 152 ms QRS Dur : 086 ms QT Int : 350 ms P-R-T Axes : 048 -13 051 degrees QTc Int : 425 ms Normal sinus rhythm Normal ECG Confirmed by Valdez Duggan ([id number]), editor & co founder DONNY JOHNSON ([id number]) on 12/29/2023 9:39:52 AM Referred By: Confirmed By:Valdez Duggan
[2023-12-26 06:51] LABS: Bedside Glucose 120 mg/dL (74-106)
[2023-12-26] MEDS: Ipratropium/Albuterol Sulfate 3 ML AMPUL.NEB INHALATION ×2 (06:57→20:53)
--- NOTE | 2023-12-26 08:38 | PN.HOSP_ITS ---
Reason for Visit Reason for Visit: Diagnoses Gastrointestinal hemorrhage, unspecified (12/24/23) Subjective Subjective Patient seen still has melenic stool. Was seen by Dr. Patino today. Plan is for patient to undergo endoscopic evaluation Objective Data Objective Data Vital Signs: Vital Signs Temp Pulse Resp BP Pulse Ox O2 Del Method O2 Flow Rate 97.5 F L 97 18 99/53 L 100 Room Air 2 12/26/23 03:50 12/26/23 03:50 12/26/23 03:50 12/26/23 03:50 12/26/23 03:50 12/26/23 03:50 12/25/23 04:30 Oxygen Flow Rate (L/min) 2 Oxygen Delivery Method Room Air Weight: 103.9 kg Body Mass Index (BMI) 33.8 Intake & Output: Intake and Output for Last 24 Hours 12/24/23 12/25/23 12/26/23 23:59 23:59 23:59 Intake Total 2084 / 2084 4310.92 / 4310.92 186.25 / 186.25 Output Total 2650 / 2650 700 / 700 Balance 2084 / 2084 1660.92 / 1660.92 -513.75 / -513.75 Lab / Micro Data 12/26/23 03:02 12/26/23 03:02 Labs: Laboratory Results - last 24 hr 12/25/23 11:23: POC Glucose 117 H 12/25/23 11:45: Hgb 7.8 L, Hct 22.8 L 12/25/23 16:14: POC Glucose 111 H 12/25/23 20:45: POC Glucose 119 H 12/26/23 03:02: WBC 7.7, RBC 1.98 L, Hgb 6.4 L, Hct 18.9 L, MCV 95.5 H, MCH 32.3 H, MCHC 33.9, RDW Std Deviation 47.7 H, RDW Coeff of Oswaldo 14.2, Plt Count 179, MPV 11.0, Immature Gran % (Auto) 0.800, Neut % (Auto) 53.3, Lymph % (Auto) 35.8, Caldwell % (Auto) 6.6, Eos % (Auto) 3.0, Baso % (Auto) 0.5, Absolute Neuts (auto) 4.1, Absolute Lymphs (auto) 2.75, Nucleated RBC % 0, PT 15.3 H, INR 1.2, APTT 30.6, Sodium 139, Potassium 4.3, Chloride 112 H, Carbon Dioxide 22.0, Anion Gap 5, BUN 33 H, Creatinine 1.00, Estim Creat Clear Calc 95.83, Est GFR (MDRD) Af Amer 99, Est GFR (MDRD) Non-Af 82, BUN/Creatinine Ratio 33.0 H, Glucose 111 H, Calcium 8.2 L, Phosphorus 3.4, Magnesium 2.1, Total Bilirubin 0.30, Direct Bilirubin 0.10, AST 14 L, ALT 17, Alkaline Phosphatase 35 L, Total Protein 5.1 L , Albumin 2.7 L, Globulin 2.4 12/26/23 05:38: POC Glucose 120 H Micro: Microbiology 12/24/23 18:30 Stool Stool Occult Blood (REYMUNDO) - Final Occult Blood Positive Physical Exam Narrative GENERAL: cooperative HEENT: Atraumatic; normocephalic EYES; Anicteric, Normal Conjunctiva NECK; supple, normal thyroid, RESPIRATORY: Diminished to auscultation CARDIOVASCULAR: Regular S1 S2, GI: soft, normoactive bowel sounds, : No Renal angle tenderness; EXTREMITIES: No edema, no clubbing, MUSCULOSKELETAL: no muscle wasting NEURO: Awake; no lateralizing signs. SKIN: No Rash PSYCH; Flat affect Assessment & Plan Assessment/Plan (1) Upper GI bleed: PLAN: Plan This is 58-year-old gentleman being admitted for black/melena for last 2 days along with abdominal pain. Acute GI bleed ? Suspected to be secondary to upper GI bleed patient admitted to a monitored bed given his relatively low blood pressure resuscitated with IV fluid started on Protonix octreotide drip as well as Rocephin patient was started on crossmatch for 2 unit PRBC H&H ordered every 6 hours and consultation placed to GI for possible endoscopic evaluation ? CT of the abdomen and pelvis obtained on admission demonstrated Large duodenal ulcer along the medial wall of the first portion of the duodenum ? 12/26/2023 plans for patient to undergo endoscopic evaluation by Dr. Patino 2. Anemia ? Secondary to acute blood loss anemia. Monitoring H&H with every 6 hours with plan for transfusion as patient is deemed to be symptomatic while hemoglobin falls below 7 additional management as discussed above ? 12/26/2023; hemoglobin down to 6.4 additional units of PRBC transfused 3. Alcoholic cirrhosis ? As reported by CT. Patient currently does not have any signs of portal hypertension 4. Chronic alcohol dependence ? Patient was placed on CIWA protocol with lorazepam as needed 5. Acute kidney injury ? Baseline creatinine from July 2023 was 0.8, creatinine on admission was 1.43 patient is on IV fluid with subsequent monitoring of electrolytes 6. COPD ? Currently not in exacerbation aerosol treatment continue 7. Diabetes mellitus type 2 ? Patient placed on Accu-Cheks before meals and at bedtime with sliding scale coverage 8. Dyslipidemia ? Patient is on Vascepa continued 9. Essential hypertension ? Patient blood pressure was relatively low, he is on losartan and metoprolol held on admission plan is to resume as soon as blood pressure stabilizes 10. Chronic degenerative arthritis -status post right TKR and bilateral hand arthritis: Patient on meloxicam 15 mg daily which is held and probably needs to be discontinued at the time of discharge. 11. DVT prophylaxis ? Chemoprophylaxis contraindicated in view of patient presentation placed on bilateral SCDs Time spent in the patient's overall evaluation,decision-making process, review of diagnostic data, adjustment of management, discussion with other providers, nursing nursing and ancillary staff involved in patient's care documentation, 50 Minutes Charges/Coding Visit Charges Inpatient E&M: 67301 Subs Hosp L3
[2023-12-26] MEDS: Pantoprazole Sodium 40 MG in 0.9% Normal Saline (100mL MB+) 100 ML 330 MG IV ×2 (08:47→20:55)
[2023-12-26 12:08] LABS: Bedside Glucose 127 mg/dL (74-106)
[2023-12-26] MEDS: Lactated Ringers 1,000 ML 15 ML IV (12:31)
--- NOTE | 2023-12-26 13:10 | OP.CCLET_ITS ---
12/26/2023 Eduardo Serrano Re : Upper GI endoscopy procedure for Kory Llanos Zach This procedure was performed on Tuesday, December 26, 2023. My impressions and recommendations are as follows: Impressions : - Esophageal mucosal changes suggestive of short-segment Espino's esophagus. - Small hiatal hernia. - Oozing gastric ulcer with adherent clot. Injected. Treated with a heater probe. - Spurting duodenal ulcer with a visible vessel. Treatment not successful. Treated with argon plasma coagulation (APC). hemostatic spray applied. - No specimens collected. Recommendations : - Return patient to [facility] for ongoing care. - NPO today. - Administer an IV bolus of 50 micrograms of octreotide followed by an infusion of 50 micrograms per hour today. - Give Protonix (pantoprazole): initiate therapy with 80 mg IV bolus, then 8 mg/hr IV by continuous infusion today. - Continue present medications. My findings are described in the full procedure note, which is enclosed. If I can be of further assistance, please feel free to contact me at . Sincerely, Hao Patino, 12/26/2023 1:09:30 PM This report has been signed electronically.
--- NOTE | 2023-12-26 13:10 | OP.EGD_ITS ---
Patient Name: Kory Johnston Procedure Date: 12/26/2023 12:33 PM Date of : 1965 Age: 58 Procedure: Upper GI endoscopy Indications: Iron deficiency anemia, Melena Providers: Hao Patino DO Medicines: Monitored Anesthesia Care Patient Profile: This is a 58 year old male. Refer to note in patient chart for documentation of history and physical. Patient has symptoms of acute epigastric abdominal pain. Complications: No immediate complications. Procedure: Pre-Anesthesia Assessment: - Prior to the procedure, a History and Physical was performed, and patient medications and allergies were reviewed. The patient is competent. The risks and benefits of the procedure and the sedation options and risks were discussed with the patient. All questions were answered and informed consent was obtained. Patient identification and proposed procedure were verified by the physician in the pre-procedure area. Mental Status Examination: alert and oriented. Airway Examination: normal oropharyngeal airway and neck mobility. Respiratory Examination: clear to auscultation. CV Examination: normal. Prophylactic Antibiotics: The patient does not require prophylactic antibiotics. Prior Anticoagulants: The patient has taken no anticoagulant or antiplatelet agents. ASA Grade Assessment: III - A patient with severe systemic disease. After reviewing the risks and benefits, the patient was deemed in satisfactory condition to undergo the procedure. The anesthesia plan was to use monitored anesthesia care (MAC). Immediately prior to administration of medications, the patient was re-assessed for adequacy to receive sedatives. The heart rate, respiratory rate, oxygen saturations, blood pressure, adequacy of pulmonary ventilation, and response to care were monitored throughout the procedure. The physical status of the patient was re-assessed after the procedure. After obtaining informed consent, the endoscope was passed under direct vision. Throughout the procedure, the patient's blood pressure, pulse, and oxygen saturations were monitored continuously. The Endoscope was introduced through the mouth, and advanced to the second part of duodenum. The upper GI endoscopy was accomplished without difficulty. The patient tolerated the procedure well. Scope In: 12:48:57 PM Scope Out: 1:01:34 PM Total Procedure Duration Time 0 hours 12 minutes 37 seconds Findings: There were esophageal mucosal changes suggestive of short-segment Espino's esophagus present in the lower third of the esophagus. The maximum longitudinal extent of these mucosal changes was 3 cm in length. A small hiatal hernia was present. No other significant abnormalities were identified in a careful examination of the stomach. One oozing linear gastric ulcer with adherent clot was found at the pylorus. The lesion was 6 mm in largest dimension. Area was successfully injected with 5 mL of a 0.1 mg/mL solution of epinephrine for drug delivery. Coagulation for hemostasis using heater probe was successful. Estimated blood loss was minimal. One spurting cratered duodenal ulcer with a visible vessel was found in the duodenal bulb. The lesion was 20 mm in largest dimension. Coagulation for hemostasis using argon plasma at 0.9 liters/minute and 50 rangel was unsuccessful. To stop active bleeding, hemostatic spray was deployed. Several sprays were applied. Bleeding had stopped at the end of the procedure. Impression: - Esophageal mucosal changes suggestive of short-segment Espino's esophagus. - Small hiatal hernia. - Oozing gastric ulcer with adherent clot. Injected. Treated with a heater probe. - Spurting duodenal ulcer with a visible vessel. Treatment not successful. Treated with argon plasma coagulation (APC). hemostatic spray applied. - No specimens collected. Recommendation: - Return patient to hospital [facility] for ongoing care. - NPO today. - Administer an IV bolus of 50 micrograms of octreotide followed by an infusion of 50 micrograms per hour today. - Give Protonix (pantoprazole): initiate therapy with 80 mg IV bolus, then 8 mg/hr IV by continuous infusion today. - Continue present medications. Procedure Code(s): --- Professional --- 25076, Esophagogastroduodenoscopy, flexible, transoral; with control of bleeding, any method 93860, 59,51, Esophagogastroduodenoscopy, flexible, transoral; with directed submucosal injection(s), any substance CPT copyright 2021 [employer]. All rights reserved. The codes documented in this report are preliminary and upon tour escort review may be revised to meet current compliance requirements. Hao Patino DO 12/26/2023 1:09:30 PM This report has been signed electronically. Number of Addenda: 0 Note Initiated On: 12/26/2023 12:33 PM
--- NOTE | 2023-12-26 14:53 | PCM.DC.SUM ---
Providers Date of Admission: 12/24/23 Date of Discharge: 12/26/23 Primary Care Physician: Eduardo Serrano, ANIL-Judith Consultations 12/24/23 23:51 Consult: Gastroenterology Routine Consulting Provider: Le[facility] Reason for Consult: GI bleed EMERGENT Consult: No MD Notified: Yes Date Notified: 12/24/23 Time Notified: 22:32 Method of Notification: ED Physician Initiated Reason For Visit: UPPER GI BLEED Diagnosis Discharge Diagnosis (1) Upper GI bleed: Status: Acute Code(s): K92.2 - Gastrointestinal hemorrhage, unspecified Plan This is 58-year-old gentleman being admitted for black/melena for last 2 days along with abdominal pain. Acute GI bleed ? Suspected to be secondary to upper GI bleed patient admitted to a monitored bed given his relatively low blood pressure resuscitated with IV fluid started on Protonix octreotide drip as well as Rocephin patient was started on crossmatch for 2 unit PRBC H&H ordered every 6 hours and consultation placed to GI for possible endoscopic evaluation ? CT of the abdomen and pelvis obtained on admission demonstrated Large duodenal ulcer along the medial wall of the first portion of the duodenum ? 12/26/2023 plans for patient to undergo endoscopic evaluation by Dr. Patino ? Patient EGD demonstrated - Esophageal mucosal changes suggestive of short-segment Espino's esophagus. - Small hiatal hernia. - Oozing gastric ulcer with adherent clot. Injected. Treated with a heater probe. - Spurting duodenal ulcer with a visible vessel. Treatment not successful. Treated with argon plasma coagulation (APC). hemostatic spray applied. Based on above Case discussed with Dr. Patino recommended patient to be transferred to tertiary care center for general surgery evaluation for possible surgical intervention. Call was placed to [facility] patient was accepted for transfer 2. Anemia ? Secondary to acute blood loss anemia. Monitoring H&H with every 6 hours with plan for transfusion as patient is deemed to be symptomatic while hemoglobin falls below 7 additional management as discussed above ? 12/26/2023; hemoglobin down to 6.4 additional units of PRBC transfused 3. Alcoholic cirrhosis ? As reported by CT. Patient currently does not have any signs of portal hypertension 4. Chronic alcohol dependence ? Patient was placed on CIWA protocol with lorazepam as needed 5. Acute kidney injury ? Baseline creatinine from July 2023 was 0.8, creatinine on admission was 1.43 patient is on IV fluid with subsequent monitoring of electrolytes 6. COPD ? Currently not in exacerbation aerosol treatment continue 7. Diabetes mellitus type 2 ? Patient placed on Accu-Cheks before meals and at bedtime with sliding scale coverage 8. Dyslipidemia ? Patient is on Vascepa continued 9. Essential hypertension ? Patient blood pressure was relatively low, he is on losartan and metoprolol held on admission plan is to resume as soon as blood pressure stabilizes 10. Chronic degenerative arthritis -status post right TKR and bilateral hand arthritis: Patient on meloxicam 15 mg daily which is held and probably needs to be discontinued at the time of discharge. 11. DVT prophylaxis ? Chemoprophylaxis contraindicated in view of patient presentation placed on bilateral SCDs Time spent in the patient's overall evaluation,decision-making process, review of diagnostic data, adjustment of management, discussion with other providers, nursing nursing and ancillary staff involved in patient's care documentation, 50 Minutes Medications at Discharge Home Medications aspirin 81 mg tablet,delayed release 81 mg PO DAILY 05/07/23 fenofibrate nanocrystallized 145 mg tablet 145 mg PO DAILY 05/07/23 icosapent ethyl 1 gram capsule (Vascepa) 2 g PO BID 05/07/23 losartan 25 mg tablet 25 mg PO DAILY 05/07/23 metoprolol succinate 25 mg tablet,extended release 24 hr 25 mg PO DAILY 05/07/23 albuterol sulfate 90 mcg/actuation breath activated powder inhaler 2 inh inhalation Q6H PRN shortness of breath 06/23/23 atorvastatin 40 mg tablet 40 mg PO DAILY 06/23/23 bumetanide 0.5 mg tablet 0.5 mg PO DAILY 06/23/23 empagliflozin 10 mg tablet (Jardiance) 10 mg PO DAILY 06/23/23 multivitamin 1 tab PO DAILY 06/23/23 trazodone 100 mg tablet 100 mg PO QHS PRN SLEEPING 06/23/23 umeclidinium 62.5 mcg-vilanterol 25 mcg/actuation powdr for inhalation (Anoro Ellipta) 1 inh inhalation DAILY 06/23/23 oxycodone-acetaminophen 5 mg-325 mg tablet 1 - 2 tab PO Q6H PRN pain 3 days #14 tabs 07/07/23 icosapent ethyl 1 gram capsule (Vascepa) 2 g PO BID 12/24/23 meloxicam 15 mg tablet 15 mg PO DAILY 12/24/23 Hospital Course Summary of Care Provided Minutes Spent on Discharge: 50 Physical Exam Narrative GENERAL: cooperative HEENT: Atraumatic; normocephalic EYES; Anicteric, Normal Conjunctiva NECK; supple, normal thyroid, RESPIRATORY: Diminished to auscultation CARDIOVASCULAR: Regular S1 S2, GI: soft, normoactive bowel sounds, : No Renal angle tenderness; EXTREMITIES: No edema, no clubbing, MUSCULOSKELETAL: no muscle wasting NEURO: Awake; no lateralizing signs. SKIN: No Rash PSYCH; Flat affect Weight / BMI Weight Weight: 103.9 kg Body Mass Index (BMI) 33.8 ABG / Lab / Microbiology Data 12/26/23 22:40 12/26/23 03:02 Laboratory: Laboratory Results - last 24 hr 12/24/23 18:40: Crossmatch See Detail 12/25/23 16:14: POC Glucose 111 H 12/25/23 20:45: POC Glucose 119 H 12/26/23 03:02: WBC 7.7, RBC 1.98 L, Hgb 6.4 L, Hct 18.9 L, MCV 95.5 H, MCH 32.3 H, MCHC 33.9, RDW Std Deviation 47.7 H, RDW Coeff of Oswaldo 14.2, Plt Count 179, MPV 11.0, Immature Gran % (Auto) 0.800, Neut % (Auto) 53.3, Lymph % (Auto) 35.8, [place] % (Auto) 6.6, Eos % (Auto) 3.0, Baso % (Auto) 0.5, Absolute Neuts (auto) 4.1, Absolute Lymphs (auto) 2.75, Nucleated RBC % 0, PT 15.3 H, INR 1.2, APTT 30.6, Sodium 139, Potassium 4.3, Chloride 112 H, Carbon Dioxide 22.0, Anion Gap 5, BUN 33 H, Creatinine 1.00, Estim Creat Clear Calc 95.83, Est GFR (MDRD) Af Amer 99, Est GFR (MDRD) Non-Af 82, BUN/Creatinine Ratio 33.0 H, Glucose 111 H, Calcium 8.2 L, Phosphorus 3.4, Magnesium 2.1, Total Bilirubin 0.30, Direct Bilirubin 0.10, AST 14 L, ALT 17, Alkaline Phosphatase 35 L, Total Protein 5.1 L, Albumin 2.7 L, Globulin 2.4 12/26/23 05:38: POC Glucose 120 H 12/26/23 11:37: POC Glucose 127 H Microbiology: Microbiology 12/24/23 18:30 Stool Stool Occult Blood (REYMUNDO) - Final Occult Blood Positive D/C Instructions Discharge Diet: No restrictions Discharge Activity: Return to Normal Activity Call your doctor if you observe: Fever of 101 or Higher, Shortness of breath, Fainting spells and Chest pain Meaningful Use Info Meaningful Use Diagnoses (Choose all that apply): None applicable Discharge Plan Admission Admit Date/Time: 12/24/23 22:26 Attending Provider: Maik Youngblood Primary Care Provider: Eduardo Serrano NP Consulting Providers: Walt Reyes Discharge Orders/Prescriptions Prescriptions: No Action icosapent ethyl [Vascepa] 1 gram capsule 2 g PO BID metoprolol succinate 25 mg tablet extended release 24 hr 25 mg PO DAILY losartan 25 mg tablet 25 mg PO DAILY fenofibrate nanocrystallized 145 mg tablet 145 mg PO DAILY aspirin 81 mg tablet,delayed release (DR/EC) 81 mg PO DAILY Hold Instructions: Resume on 07/08/23. trazodone 100 mg tablet 100 mg PO QHS PRN (Reason: SLEEPING) albuterol sulfate 90 mcg/actuation aerosol powdr breath activated 2 inh inhalation Q6H PRN (Reason: shortness of breath) atorvastatin 40 mg tablet 40 mg PO DAILY bumetanide 0.5 mg tablet 0.5 mg PO DAILY Jardiance 10 mg tablet 10 mg PO DAILY multivitamin Tablet 1 tab PO DAILY Anoro Ellipta 62.5-25 mcg/actuation blister with device 1 inh inhalation DAILY meloxicam 15 mg tablet 15 mg PO DAILY Patient Comments: TAKE 1 TABLET BY MOUTH ONCE DAILY, START WHEN FINISHED WITH PREDNISONE. icosapent ethyl [Vascepa] 1 gram capsule 2 g PO BID oxycodone-acetaminophen 5-325 mg tablet 1 - 2 tab PO Q6H PRN (Reason: pain) 3 Days Qty: 14 0RF Referrals / Follow Up: Eduardo Serrano NP, [facility] [employer]MENT[facility]-C [Primary Care Provider] - Disposition Disposition (needs filled in before D/C Order can be placed): Acute Care Hospital Charges/Coding Visit Charges Inpatient E&M: 69514 Disch Hosp >30min
[2023-12-26] MEDS: 0.9% Saline Lock 10 ML Syringe IV ×2 (15:18→17:29)
[2023-12-26 16:45] LABS: Bedside Glucose 121 mg/dL (74-106)
--- NOTE | 2023-12-26 20:33 | NURSING ---
Informed patient of physician intent to transfer to [facility] for gi bleed treatment unable to be done here. Pt states he wants to go to [place] instead not [facility] and he would rather stay here than go there. Dr Reyes informed states he will talk with him on the phone. transferred call to room per his request.
[2023-12-26] MEDS: Ceftriaxone 1 GM/50 ML BAG IV (21:19)
--- NOTE | 2023-12-26 21:37 | NURSING ---
called report to [facility]
[2023-12-26 22:26] LABS: Bedside Glucose 102 mg/dL (74-106)
[2023-12-26 22:52] LABS: Hematocrit 23.3 % (40-54); Hemoglobin 7.8 g/dL (13.0-16.5)
--- NOTE | 2023-12-27 00:44 | NURSING ---
report given to transport, all belongs went with pt along with home meds
--- NOTE | 2023-12-27 00:52 | NURSING ---
updated nurse at [facility] with arrival time
== END 2023-12-27 01:04 | disposition short-term general hospital (02) | DRG 378 ==
LOC: ED 22:39 → PCU 22:50
PROVIDERS: Emergency Medicine; Internal Medicine Gastroenterology; Nurse Practitioner; Admitting Provider Internal Medicine; Emergency Provider Student in an Organized Health Care Education/Training Program; PCP Nurse Practitioner Family; Visit Provider Internal Medicine
PROC: 0DJ08ZZ Inspection of Upper Intestinal Tract, Via Natural or Artificial Opening Endoscopic (ICD-10-PCS; CPT 43235; principal; 2023-12-26 12:00)
DX: K25.4 Chronic or unspecified gastric ulcer with hemorrhage (principal); N17.9 Acute kidney failure, unspecified; D62 Acute posthemorrhagic anemia; K57.32 Diverticulitis of large intestine without perforation or abscess without bleeding; I11.0 Hypertensive heart disease with heart failure; K70.30 Alcoholic cirrhosis of liver without ascites; I50.9 Heart failure, unspecified; E11.9 Type 2 diabetes mellitus without complications; J44.9 Chronic obstructive pulmonary disease, unspecified; F10.20 Alcohol dependence, uncomplicated; E78.00 Pure hypercholesterolemia, unspecified; K44.9 Diaphragmatic hernia without obstruction or gangrene; F17.210 Nicotine dependence, cigarettes, uncomplicated; M19.041 Primary osteoarthritis, right hand; M19.042 Primary osteoarthritis, left hand; K22.70 Barrett's esophagus without dysplasia; Y90.0 Blood alcohol level of less than 20 mg/100 ml; Z79.1 Long term (current) use of non-steroidal anti-inflammatories (NSAID); Z79.82 Long term (current) use of aspirin; Z79.899 Other long term (current) drug therapy; Z96.651 Presence of right artificial knee joint
CPT/HCPCS: 36415; 74177; 80048; 80053; 80076; 80320; 82274; 82962; 83605; 83690; 83735; 84100; 85014; 85018; 85025; 85610; 85730; 86850; 86900; 86901; 86920; 93005; 94640; 94668; 99285; 99406; J7030; J7040; J7120; P9016; Q9967; A4216; G0480; J2354; J2405; J3490

== ENCOUNTER → 2024-02-03 | Outpatient (CLI) | payer MEDICARE, SELFPAY ==
--- NOTE | 2024-02-03 10:41 | MRI_ITS ---
EXAM: MR ABDOMEN WITHOUT AND WITH INTRAVENOUS CONTRAST CLINICAL INDICATION: RENAL MASS TECHNIQUE: Multiplanar and multisequence MR images of the abdomen without and with intravenous contrast. Magnetic field strength 1.5 T. CONTRAST: 20 cc of Clariscan IV. COMPARISON: No relevant prior studies available. FINDINGS: LOWER THORAX: Unremarkable. No pleural effusion. LIVER: Nodular liver contour consistent with cirrhosis. GALLBLADDER AND BILE DUCTS: Unremarkable. No gallstones. No gallbladder distention or wall edema. No intra- or extrahepatic biliary ductal dilation. PANCREAS: Unremarkable. No focal cystic or solid mass. SPLEEN: Borderline splenomegaly. ADRENALS: Unremarkable. No nodules. KIDNEYS AND URETERS: Simple appearing cyst measuring 1.9 cm involving the upper pole left kidney. Normal renal size and position. No hydronephrosis. INTRAPERITONEAL SPACE: Unremarkable. No ascites or other fluid collection. No free air. VASCULATURE: Unremarkable. Abdominal aorta is non-dilated. LYMPH NODES: No enlarged lymph nodes. MRI/MRI Abd WITH and W/O Contrast IMPRESSION: 1. Simple appearing cyst measuring 1.9 cm involving the upper pole left kidney. No follow-up necessary. 2. Nodular liver contour consistent with cirrhosis. 3. Borderline splenomegaly. Electronically Signed: Valdez Rubio MD at 3:37 EDT ,
--- NOTE | 2024-02-03 10:44 | RAD_ITS ---
STUDY: X-RAY - ORBITS REASON FOR EXAM: Male, 58 years old. HX METAL TO EYE; PRE MRI TECHNIQUE: 2 view(s) of the orbits were obtained. COMPARISON: None. FINDINGS: Normal bilateral orbits without a metallic orbital foreign body. Normal visualized facial bones. Normal paranasal sinuses. The soft tissue structures are unremarkable. RAD/Orbits for Foreign Body IMPRESSION: No demonstrated metallic orbital foreign body. The patient is cleared for an MRI examination. Electronically Signed: Carlo Marquez MD at 10:54 EDT ,
== END | disposition home or self-care (01) ==
PROVIDERS: PCP Nurse Practitioner Family; Referring Provider Nurse Practitioner Family; Visit Provider Nurse Practitioner Family
DX: N28.89 Other specified disorders of kidney and ureter (principal)
CPT/HCPCS: 70030; 74183; A9575

== ENCOUNTER → 2024-02-08 | Outpatient (CLI) | payer MEDICARE, SELFPAY ==
[2024-02-08 12:42] LABS: Hematocrit 42.8 % (40-54); Hemoglobin 13.4 g/dL (13.0-16.5); Mean Corp Hgb Conc 31.3 g/dL (32-36); Mean Corpuscular Hgb 27.6 pg (27.0-32.0); Mean Corpuscular Volume 88.1 fL (80-94); Mean Platelet Vol. 10.8 fl (6.2-12.0); Platelet Count 201 K/mm3 (150-450); RBC Distribution Width CV 13.6 % (11.6-14.6); RBC Distribution Width SD 44.5 fl (35.1-43.9); Red Blood Count 4.86 M/mm3 (4.6-6.2); Reticulocyte Count 1.03 % (0.5-1.5)
[2024-02-08 12:52] LABS: Microalbumin,Random Urine < 5.0 mg/L (NO RANGE EST.)
[2024-02-08 14:01] LABS: ALB/GLOB Ratio 1.1 RATIO (0.9-2.4); AST(SGOT) 28 U/L (15-37); Alanine Aminotransfer ALT/SGPT 39 U/L (16-61); Albumin, Serum 3.9 g/dL (3.2-5.0); Alkaline Phosphatase 74 U/L (45-117); Anion Gap 4 (5-15); BUN 8 mg/dL (7-18); BUN/Creat Ratio 10.2 RATIO (10-20); Calcium,Total 9.2 mg/dL (8.5-10.1); Chloride 108 mmol/L (98-107); Cholesterol 122 mg/dL (200); Creatinine, Serum 0.78 mg/dL (0.70-1.30); EST Glomerular Filtration Rate 108 mL/min (>60); Est Glom Filt Rate - Afr Amer 131 mL/min (>60); Ferritin 13 ng/mL (26-388); Globulin 3.4 g/dL (2.2-4.2); Glucose 94 mg/dL (74-106); High Density Lipoprotein 35 mg/dL; Iron 19 ug/dL (65-175); Iron Binding Capacity,Total 534 ug/dL (250-450); PERCENT IRON SATURATION 3.6 % (15.0-55.0); Potassium 3.9 mmol/L (3.5-5.1); Protein, Total 7.3 g/dL (6.4-8.2); Sodium Level 138 mmol/L (136-145); Triglycerides 119 mg/dL; Very Low Density Lipoprotein 24 mg/dL (5-40)
[2024-02-08 14:10] LABS: Hemoglobin A1c 4.7 % (3.8-5.6)
== END | disposition home or self-care (01) ==
PROVIDERS: PCP Nurse Practitioner Family; Referring Provider Nurse Practitioner Family; Visit Provider Nurse Practitioner Family
DX: J43.9 Emphysema, unspecified (principal); E11.9 Type 2 diabetes mellitus without complications; D53.9 Nutritional anemia, unspecified; I10 Essential (primary) hypertension; R79.89 Other specified abnormal findings of blood chemistry; E55.9 Vitamin D deficiency, unspecified; E78.1 Pure hyperglyceridemia; E78.5 Hyperlipidemia, unspecified
CPT/HCPCS: 36415; 80053; 80061; 82043; 82570; 82728; 83036; 83540; 83550; 85027; 85045

== ENCOUNTER → 2024-08-01 | Outpatient (CLI) | payer MEDICARE, SELFPAY ==
--- NOTE | 2024-08-01 14:03 | ECHOD_ITS ---
Reason For Study: CHRONIC SYSTOLIC HEART FAILURE Procedure This was a 2D Doppler, Color Flow transthoracic echocardiogram. Exam performed in department. Left Ventricle Normal LV size. Mild concentric left ventricular hypertrophy. The left ventricular ejection fraction is 55 %. Normal diastololic function. Right Ventricle Normal right ventricle. Atria The left and right atria are normal. Mitral Valve Trivial mitral valve insufficiency. Tricuspid Valve Trivial tricuspid valve insufficiency. Normal pulmonary artery pressure. Aortic Valve Trisinus/trileaflet aortic valve. Pulmonic Valve The pulmonic valve is not well visualized. Great Vessels Normal sized aortic root. Pericardium/Pleural No pericardial effusion. MMode/2D Measurements & Calculations LVIDd: 5.3 cm IVSd: 1.2 cm LVOT diam: 2.1 cm LVIDs: 3.3 cm LVPWd: 0.90 cm LVOT area: 3.4 cm2 RVDd: 3.7 cm FS: 37.7 % asc Aorta Diam: 3.4 cm LAV(MOD-bp): 54.0 ml LVAd ap4: 35.0 cm2 LAV(MOD-bp) Indexed: 24.6 ml/m2 LVLd ap4: 8.6 cm LAV(MOD-sp2): 63.5 ml EDV(MOD-sp4): 116.1 ml LAV(MOD-sp4): 46.3 ml EDV(sp4-el): 121.5 ml LVAs ap4: 20.0 cm2 LVLs ap4: 7.2 cm ESV(MOD-sp4): 48.1 ml ESV(sp4-el): 47.4 ml EF(MOD-sp4): 58.5 % EF(sp4-el): 61.0 % LVAd ap2: 31.4 cm2 SV(MOD-sp4): 68.0 ml SV(MOD-sp2): 61.8 ml LVLd ap2: 8.6 cm EDV(MOD-sp2): 95.0 ml EDV(sp2-el): 97.3 ml LVAs ap2: 15.8 cm2 LVLs ap2: 6.9 cm ESV(MOD-sp2): 33.2 ml ESV(sp2-el): 30.7 ml EF(MOD-sp2): 65.0 % SV(sp4-el): 74.1 ml Ao sinus diam: 3.[address] Junction: 2.9 cm LA dimension(2D): 3.5 cm LA A4 area: 17.5 cm2 RA A4 area: 9.8 cm2 TAPSE: 2.3 cm Time Measurements MV dec time: 0.21 sec Doppler Measurements & Calculations MV E max michael: 87.8 cm/sec Lat Peak E' Michael: 10.4 cm/sec Med Peak E' Michael: 10.3 cm/sec MV A max michael: 80.5 cm/sec E/E' lat: 8.4 E/E' med: 8.6 MV E/A: 1.1 MV dec slope: 414.2 cm/sec2 Ao V2 max: 153.1 cm/sec LV V1 max: 136.8 cm/sec Ao max P.4 mmHg LV V1 max P.5 mmHg Ao V2 mean: 110.0 cm/sec LV V1 mean P.4 mmHg Ao mean P.4 mmHg LV V1 mean: 98.5 cm/sec Ao V2 VTI: 33.6 cm LV V1 VTI: 29.5 cm AV (velocity ratio): 0.88 HUNTER(I,D): 3.0 cm2 HUNTER(V,D): 3.0 cm2 SV(LVOT): 99.5 ml PA V2 max: 110.7 cm/sec TR max michael: 249.3 cm/sec PA max PG (full): 2.6 mmHg TR max P.9 mmHg ECHO/Echo Complete Interpretation Summary Mild concentric left ventricular hypertrophy. The left ventricular ejection fraction is 55 %. Normal diastolic function Ordering Physician: Andrae Dawn Referring Physician: Andrae Dawn Performed By: Stacia Cardozo, MARISELA
== END | disposition home or self-care (01) ==
LOC: CVS 14:02
PROVIDERS: PCP Nurse Practitioner Family; Referring Provider Internal Medicine Cardiovascular Disease; Visit Provider Internal Medicine Cardiovascular Disease
DX: I50.22 Chronic systolic (congestive) heart failure (principal); K70.30 Alcoholic cirrhosis of liver without ascites; E78.5 Hyperlipidemia, unspecified
CPT/HCPCS: 93306

== ENCOUNTER → 2024-08-09 | Outpatient (CLI) | payer MEDICARE, SELFPAY ==
[2024-08-09 14:50] LABS: Anion Gap 7 (5-15); BUN 10 mg/dL (7-18); BUN/Creat Ratio 10.4 RATIO (10-20); Calcium,Total 8.9 mg/dL (8.5-10.1); Chloride 106 mmol/L (98-107); Creatinine, Serum 0.96 mg/dL (0.70-1.30); EST Glomerular Filtration Rate 85 mL/min (>60); Est Glom Filt Rate - Afr Amer 103 mL/min (>60); Glucose 115 mg/dL (74-106); Potassium 4.2 mmol/L (3.5-5.1); Sodium Level 137 mmol/L (136-145)
[2024-08-09 14:56] LABS: BNP,B-Type NATRIURETIC PEPTIDE 5.1 pg/mL (0-100)
== END | disposition home or self-care (01) ==
LOC: LAB 14:01
PROVIDERS: PCP Nurse Practitioner Family; Referring Provider Internal Medicine Cardiovascular Disease; Visit Provider Internal Medicine Cardiovascular Disease
DX: I11.0 Hypertensive heart disease with heart failure (principal); K70.30 Alcoholic cirrhosis of liver without ascites; I50.22 Chronic systolic (congestive) heart failure; E78.5 Hyperlipidemia, unspecified
CPT/HCPCS: 36415; 80048; 83735; 83880

== ENCOUNTER → 2024-08-10 | Outpatient (CLI) | payer MEDICARE, SELFPAY ==
[2024-08-10 10:57] LABS: Hematocrit 45.2 % (40-54); Hemoglobin 14.7 g/dL (13.0-16.5); Mean Corp Hgb Conc 32.5 g/dL (32-36); Mean Corpuscular Hgb 27.8 pg (27.0-32.0); Mean Corpuscular Volume 85.6 fL (80-94); Mean Platelet Vol. 10.7 fl (6.2-12.0); Platelet Count 136 K/mm3 (150-450); RBC Distribution Width SD 46.6 fl (35.1-43.9); Red Blood Count 5.28 M/mm3 (4.6-6.2)
[2024-08-10 11:23] LABS: ALB/GLOB Ratio 1.1 RATIO (0.9-2.4); AST(SGOT) 22 U/L (15-37); Alanine Aminotransfer ALT/SGPT 32 U/L (16-61); Albumin, Serum 3.8 g/dL (3.2-5.0); Alkaline Phosphatase 68 U/L (45-117); Anion Gap 4 (5-15); BUN 12 mg/dL (7-18); BUN/Creat Ratio 14.3 RATIO (10-20); Chloride 107 mmol/L (98-107); Cholesterol 149 mg/dL (200); Creatinine, Serum 0.84 mg/dL (0.70-1.30); EST Glomerular Filtration Rate 100 mL/min (>60); Est Glom Filt Rate - Afr Amer 121 mL/min (>60); Globulin 3.4 g/dL (2.2-4.2); Glucose 113 mg/dL (74-106); High Density Lipoprotein 36 mg/dL; Potassium 4.3 mmol/L (3.5-5.1); Protein, Total 7.2 g/dL (6.4-8.2); Sodium Level 136 mmol/L (136-145); Triglycerides 153 mg/dL; Very Low Density Lipoprotein 31 mg/dL (5-40)
[2024-08-10 11:25] LABS: Microalbumin,Random Urine < 5.0 mg/L (NO RANGE EST.)
[2024-08-10 11:26] LABS: Vitamin D,25 Hydroxy 43.6 ng/mL
[2024-08-10 11:54] LABS: Hemoglobin A1c 5.8 % (3.8-5.6)
== END | disposition home or self-care (01) ==
LOC: LAB 10:31
PROVIDERS: PCP Nurse Practitioner Family; Referring Provider Nurse Practitioner Family; Visit Provider Nurse Practitioner Family
DX: E78.5 Hyperlipidemia, unspecified (principal); K70.30 Alcoholic cirrhosis of liver without ascites; I50.22 Chronic systolic (congestive) heart failure; I11.0 Hypertensive heart disease with heart failure; E55.9 Vitamin D deficiency, unspecified; R73.01 Impaired fasting glucose; D53.9 Nutritional anemia, unspecified
CPT/HCPCS: 36415; 80053; 80061; 82043; 82306; 82570; 83036; 85027

== ENCOUNTER → 2024-11-23 | Outpatient (CLI) | payer MEDICARE, SELFPAY ==
--- NOTE | 2024-11-23 09:23 | NEURO ---
NCS and/or EMG Patient Report Ordering Doctor: Osman Rolon DATE OF SERVICE: 11/23/24 Kory presents for electrodiagnostic testing of the left upper limb. He reports numbness and tingling in the left hand. Electrodiagnostic findings: Left median motor nerve demonstrates prolonged latency with normal amplitude and conduction velocity. Normal left ulnar motor response. Normal left median and ulnar F?waves. Prolonged left median sensory latency at the wrist. Needle EMG testing was performed the left upper limb. All muscles tested showed no evidence of denervation with normal motor unit action potentials. Electrodiagnostic impression: This is an abnormal study in the left upper limb. 1. Electrodiagnostic findings suggestive of left-sided median mononeuropathy. This is consistent with a mild left carpal tunnel syndrome. Multi Select Codes Neurology Neurology Interp Codes: 76477-91 Musc test done w/n test comp (interp) and 34308-61 Nrv cndj test 7-8 studies (interp)
== END | disposition home or self-care (01) ==
PROVIDERS: PCP Nurse Practitioner Family; Referring Provider Physician Assistant; Visit Provider Physician Assistant
DX: G56.02 Carpal tunnel syndrome, left upper limb (principal)
CPT/HCPCS: 95886; 95910

== ENCOUNTER 2025-02-10 10:56 | Emergency (ER) | payer MEDICARE, SELFPAY ==
[2025-02-10 10:56] VITALS: BP 137/86; PULSE 85; RESP 16; TEMP 36.4; O2SAT 98; BMI 36.6
--- NOTE | 2025-02-10 11:58 | CT_ITS ---
PROCEDURE: ABDOMEN/PELVIS WITHOUT CONT 02/10/2025 REASON FOR EXAM: LEFT FLANK PAIN TECHNIQUE: Abdomen and pelvis CT without intravenous contrast. Noncontrast technique limits evaluation of the abdominal and pelvic viscera. Coronal and Sagittal reconstruction series were provided. One or more dose reduction techniques were used (e.g., Automated exposure control, adjustment of the mA and/or kV according to patient size, use of iterative reconstruction technique). COMPARISON: None FINDINGS: Lower chest: Unremarkable. Liver: The hepatic contour is nodular, consistent with cirrhosis. The liver is enlarged measuring 19.1 cm. Biliary/gallbladder: Unremarkable. Pancreas: Unremarkable. Spleen: The spleen is enlarged measuring 13.9 cm. Adrenal glands: Unremarkable. Kidneys: No renal calculus or hydronephrosis. Gastrointestinal/peritoneum: No acute abnormality.Mild colonic diverticulosis is present.The appendix is unremarkable.No free air or free fluid. Vascular: A coil mass is noted in the right upper quadrant, in the region of the gastroduodenal artery, likely due to prior embolization.. Lymph nodes: No enlarged lymph nodes by CT size criteria. Pelvic organs: Unremarkable. Bladder: Unremarkable. Bones: Unremarkable. Soft tissues: Suspected hernia mesh repair at the umbilicus. CT/Abdomen/Pelvis without Cont IMPRESSION: 1. No acute abnormality of the abdomen and pelvis. 2. Cirrhosis with splenomegaly. 3. 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 4. Mild colonic diverticulosis. Reading Location: [facility]
--- NOTE | 2025-02-10 12:04 | EDS_ITS ---
HPI History of Present Illness Chief Complaint: Flank Pain Informant: patient Onset/Context/Timing Onset: Month(s) (1) Context: Gradual Onset Timing: Continuous Quality: Sharp Location: Left flank Worsened by: Coughing, movement Relieved by: Rest Narrative Narrative: Patient presents with left flank pain that has been getting worse over the past month. Patient states it is gradually getting worse. Patient states it is constant. Patient describes his pain as sharp. Patient states it is worse with coughing and with movement. Patient states it is better with rest. Patient denies any fevers or chills. Patient denies any nausea or vomiting. Patient denies any dysuria or hematuria. Patient states his primary care physician ordered a CT scan of his abdomen and pelvis but he is unable to get this done for the next month. Patient states he cannot wait that long and came to the emergency department. [facility] Medical History SOB (shortness of breath) on exertion High triglycerides Dyslipidemia Heart failure with preserved ejection fraction IFG (impaired fasting glucose) Acute GI bleeding Tinnitus, bilateral Renal mass Osteoarthritis Hypokalemia Hearing deficit Chronic pain of right knee Major depression Tobacco use Increased BMI COPD with emphysema Chronic systolic HF (heart failure) Anemia, macrocytic Vitamin D deficiency Chronic alcohol dependence, continuous Alcoholic cirrhosis Elevated LFTs Hypertriglyceridemia Hyperlipidemia Type 2 diabetes mellitus with hemoglobin A1c goal of less than 7.5% Depression Wears hearing aid Wears glasses Wears dentures Alcohol use Arthritis Smoker Chronic cough History of stress test Cardiology follow-up encounter Insomnia CHF (congestive heart failure) COPD (chronic obstructive pulmonary disease) Diabetes High cholesterol HTN (hypertension) Home Medications ?Medication ?Instructions ?Recorded ?Last Taken ?Type aspirin 81 mg tablet,delayed 81 mg PO DAILY 05/07/23 0 07/01/23 History release fenofibrate nanocrystallized 145 145 mg PO DAILY 05/07 Unknown History mg tablet icosapent ethyl 1 gram capsule 2 g PO BID 05/07/23 Unk nown History (Vascepa) losartan 25 mg tablet 25 mg PO DAILY 05/07/23 Unkn own History metoprolol succinate 25 mg 25 mg PO DAILY 05/07/23 Unk nown History tablet,extended release 24 hr albuterol sulfate 90 mcg/actuation 2 inh inhalation Q6 H PRN shortness 06/23/23 Unknown History breath activated powder inhaler of breath atorvastatin 40 mg tablet 40 mg PO DAILY 06/23/23 Unkn own History bumetanide 0.5 mg tablet 0.5 mg PO DAILY 06/23/23 Unk nown History empagliflozin 10 mg tablet 10 mg PO DAILY 06/23/23 Unk nown History (Jardiance) multivitamin 1 tab PO DAILY 06/23/23 Unkn own History trazodone 100 mg tablet 100 mg PO QHS PRN SLEEPING 0 06/23/23 Unknown History umeclidinium 62.5 mcg-vilanterol 1 inh inhalation SIMON Y 06/23/23 Unknown History 25 mcg/actuation powdr for inhalation (Anoro Ellipta) meloxicam 15 mg tablet 15 mg PO DAILY 12/24/23 Unkn own History cholecalciferol (vitamin D3) 1,250 PO 02/07/25 Unknown History mcg (50,000 unit) capsule escitalopram oxalate 20 mg tablet 20 mg PO QDAY Unknown History ferrous sulfate 325 mg (65 mg 325 mg PO QDAY 02/07/25 Unknown History iron) tablet furosemide 40 mg tablet 40 mg PO QDAY 02/07/25 Unkno wn History pantoprazole 40 mg tablet,delayed 40 mg PO QDAY Unknown History release spironolactone 25 mg tablet 25 mg PO BID 02/07/25 Unkn own History sucralfate 1 gram tablet 1 g PO BID 02/07/25 Unknown History Allergy/AdvReac Type Severity Reaction Status Date / Time No Known Allergies Allergy Verified 02/10/25 10:56 Family History Mother Hypertension Arthritis Surgical History History of umbilical hernia repair Total knee replacement status S/P carpal tunnel release S/P right knee surgery Social History housing: homeless Smoking Status: Current every day smoker tobacco type: cigarettes alcohol intake: current alcohol intake frequency: a few times a week Alcohol type: beer substance use type: former substance user ROS ROS ED Constitutional Constitutional ED: Denies chills or fever(s) Eyes Eyes: Denies blurry vision or change in vision ENT ENT ED: Denies rhinorrhea or sore throat Cardiovascular Cardiovascular: Denies chest pain or palpitations Respiratory/Chest Respiratory/Chest: Reports cough; Denies dyspnea Gastrointestinal Gastrointestinal: Denies nausea or vomiting Genitourinary Genitourinary ED: Denies dysuria or hematuria Musculoskeletal Musculoskeletal: Denies back pain or neck pain Integumentary Denies abscess or rash Neurologic Neurologic: Denies headache(s) or weakness Allergic/Immunologic Allergic/Immunologic ED: Denies mouth swelling or urticaria EXAM Physical Exam Const Vital Signs: 02/10/25 10:56 Temperature 97.5 F L Temperature Source Temporal Pulse Rate 85 Respiratory Rate 16 Blood Pressure 137/86 H Blood Pressure Mean 103 Pulse Ox 98 Oxygen Delivery Method Room Air Positive well nourished and well developed General Appearance ED: well developed and NAD HEENT Reports moist mucous membranes Neck supple and no JVD Resp normal respiratory effort and clear to auscultation bilaterally Cardio regular rate and regular rhythm GI non-tender and non-distended Palpation: soft Back/Spine General Back: CVA tenderness left (Mild) Neuro oriented x3, CN's II-XII intact bilaterally and no sensory deficits noted Sensorium / Orientation: alert Motor Exam: strength 5/5 throughout Psych mental status grossly normal MDM MDM MDM Narrative Medical decision making narrative: Differential diagnosis includes ureteral calculus, pyelonephritis, musculoskeletal strain, diverticulitis, and electrolyte abnormality. CBC will be obtained to assess for leukocytosis and anemia. Basic metabolic profile will be obtained to assess for electrolyte abnormality and renal function. Urinalysis will be obtained to assess for urinary tract infection and hematuria. CT scan of the abdomen pelvis will be obtained to assess for ureteral calculus and pyelonephritis. Lab Data Attestation: I reviewed the patient's lab results. Lab results narrative: CBC was reviewed and was within normal limits. Basic metabolic profile was reviewed and was within normal limits. Urinalysis was reviewed. There is no evidence of urinary tract infection or hematuria. Radiography Diagnostic Testing: CT scan of the abdomen and pelvis was obtained. There is no acute abnormality noted. There is some cirrhosis with splenomegaly. There is diverticulosis but no evidence of diverticulitis. This was interpreted by the radiologist and was also independently reviewed by myself. Treatment and Re-Evaluation :: Patient was given IV fluids, morphine, and Zofran. Patient was feeling better on reevaluation. Patient was advised of his findings. Patient was instructed to drink plenty of fluids. Patient was instructed to take Tylenol or ibuprofen as needed for pain. Patient was instructed to follow-up with his primary care physician in 5 to 7 days for further evaluation. Patient understood and was agreeable with the plan. All questions were answered. Discharge Plan Triage Chief Complaint: Flank Pain ED Provider: Tanner Grant Dx/Rx/DC Orders Clinical Impression: Left flank pain, Tobacco use Instructions: ED Flank Pain, Uncertain Cause Prescriptions: No Action icosapent ethyl [Vascepa] 1 gram capsule 2 g PO BID metoprolol succinate 25 mg tablet extended release 24 hr 25 mg PO DAILY losartan 25 mg tablet 25 mg PO DAILY fenofibrate nanocrystallized 145 mg tablet 145 mg PO DAILY aspirin 81 mg tablet,delayed release (DR/EC) 81 mg PO DAILY trazodone 100 mg tablet 100 mg PO QHS PRN (Reason: SLEEPING) albuterol sulfate 90 mcg/actuation aerosol powdr breath activated 2 inh inhalation Q6H PRN (Reason: shortness of breath) atorvastatin 40 mg tablet 40 mg PO DAILY bumetanide 0.5 mg tablet 0.5 mg PO DAILY Jardiance 10 mg tablet 10 mg PO DAILY multivitamin Tablet 1 tab PO DAILY Anoro Ellipta 62.5-25 mcg/actuation blister with device 1 inh inhalation DAILY cholecalciferol (vitamin D3) 1,250 mcg (50,000 unit) capsule PO Patient Comments: TAKE 1 CAPSULE BY MOUTH EVERY OTHER WEEK escitalopram oxalate 20 mg tablet 20 mg PO QDAY ferrous sulfate 325 mg (65 mg iron) tablet 325 mg PO QDAY furosemide 40 mg tablet 40 mg PO QDAY pantoprazole 40 mg tablet,delayed release (DR/EC) 40 mg PO QDAY spironolactone 25 mg tablet 25 mg PO BID sucralfate 1 gram tablet 1 g PO BID meloxicam 15 mg tablet 15 mg PO DAILY Patient Comments: TAKE 1 TABLET BY MOUTH ONCE DAILY, START WHEN FINISHED WITH PREDNISONE. Primary Care Provider: Eduardo Serrano NP Referrals: Eduardo Serrano NP, OPERATIONS RESEARCH ANALYST-C [Primary Care Provider] - 5-7 Days Print Language: Macedonian Disposition Disposition: Home, Self Care Discharge Date/Time: 02/10/25 15:38
[2025-02-10] MEDS: Ondansetron 4 MG/2 ML Vial IV (12:05)
[2025-02-10] MEDS: Morphine 4 MG/ML Syringe IV (12:05)
[2025-02-10] MEDS: 0.9% Normal Saline (1000mL) 1,000 ML 1000 ML IV (12:05)
[2025-02-10 12:09] LABS: Absolute Lymphocyte Count 2.47 X10^3/uL (0.83-4.51); Absolute Neutrophil Count 3.7 X10^3/uL (2.0-7.7); Basophil# 0.07 X10^3/uL; Eosinophils% 1.4 % (0-5); Hematocrit 46.8 % (40-54); Hemoglobin 15.4 g/dL (13.0-16.5); Lymphocyte # 2.47 X10^3/ul (0.83-4.51); Lymphocyte % 34.6 % (19-41); Mean Corp Hgb Conc 32.9 g/dL (32-36); Mean Corpuscular Hgb 27.4 pg (27.0-32.0); Mean Corpuscular Volume 83.1 fL (80-94); Mean Platelet Vol. 10.4 fl (6.2-12.0); Monocyte# 0.79 X10^3/uL; Monocyte% 11.1 % (0-10); NRBC Flagged by Analyzer 0 % (0-5); Neutrophil # 3.67 X10^3/uL (2.7-7.7); Neutrophil % 51.5 % (47-70); Platelet Count 154 K/mm3 (150-450); RBC Distribution Width CV 16.9 % (11.6-14.6); Red Blood Count 5.63 M/mm3 (4.6-6.2); White Blood Count 7.1 K/mm3 (4.4-11.0)
[2025-02-10 12:34] LABS: Bacteria 0 SEEN /hpf (None Seen); Mucous, Urine 0 SEEN /hpf (<or=2+); White Blood Cells 0 SEEN /hpf (0-5)
[2025-02-10 12:39] LABS: Color, Urine Yellow (Yellow); Glucose, Dipstick 1000 mg/dl (Normal); Ketone-Dipstick Negative (Negative); Leukocyte Esterase-Dipstick Negative /ul (Negative); Nitrite-Dipstick Negative (Negative); Occult Blood-Urine Negative /ul (Negative); Protein-Dipstick 15 mg/dl (Negative); Urine Bilirubin Dipstick Negative (Negative); Urine Clarity Clear (Clear); Urine Urobilinogen 1 mg/dl (Normal)
[2025-02-10 12:51] LABS: Red Blood Cells-Urine 0 SEEN /hpf (0-5); Squamous Epithelial Cells - UA 0-5 SEEN /hpf (0-5)
[2025-02-10 12:56] VITALS: BP 128/78; PULSE 70; RESP 18; O2SAT 98
[2025-02-10 12:59] LABS: Anion Gap 14 (5-15); BUN 9 mg/dL (4-19); BUN/Creat Ratio 10.1 RATIO (10-20); Calcium,Total 9.2 mg/dL (7.6-11.0); Chloride 102 mmol/L (98-108); Creatinine, Serum 0.87 mg/dL (0.70-1.20); EST Glomerular Filtration Rate 99 (>60); Estimated Creatinine Clearance 113.04 ml/min (50-250); Glucose 122 mg/dL (70-99); Potassium 4.1 mmol/L (3.3-5.1); Sodium Level 136 mmol/L (133-145)
[2025-02-10 14:00] VITALS: PULSE 80; RESP 16; O2SAT 98
[2025-02-10 15:35] VITALS: BP 120/89; PULSE 80; RESP 16; TEMP 36.6; O2SAT 98
--- NOTE | 2025-02-10 15:36 | ED.RN ---
PT CALLED THIS NURSE INTO ROOM. PT SEEMS AGITATED THAT SAID HE WAS GOOD TO BE DISCHARDED BUT STILL WAITING HOURS FOR DISCHARGE PAPERWORK. PT EDUCATED ON RISKS FOR LEAVING WITHOUT PAPEROWKR. PT GIVEN RESOURCES FOR PT PORTAL. IV WAS REMOVED. PT LEFT WITHOUT DISCHARGE INSTRUCTIONS
== END 2025-02-10 15:38 | disposition home or self-care (01) ==
LOC: ED 11:52
PROVIDERS: Emergency Provider Emergency Medicine; PCP Nurse Practitioner Family; Visit Provider Emergency Medicine
DX: R10.9 Unspecified abdominal pain (principal); K74.60 Unspecified cirrhosis of liver; I11.0 Hypertensive heart disease with heart failure; I50.22 Chronic systolic (congestive) heart failure; J44.9 Chronic obstructive pulmonary disease, unspecified; E11.9 Type 2 diabetes mellitus without complications; K57.30 Diverticulosis of large intestine without perforation or abscess without bleeding; R16.1 Splenomegaly, not elsewhere classified; E78.00 Pure hypercholesterolemia, unspecified; F32.A Depression, unspecified; E55.9 Vitamin D deficiency, unspecified; D53.9 Nutritional anemia, unspecified; F17.210 Nicotine dependence, cigarettes, uncomplicated; M19.90 Unspecified osteoarthritis, unspecified site; G47.00 Insomnia, unspecified; Z79.82 Long term (current) use of aspirin; Z87.19 Personal history of other diseases of the digestive system; Z79.84 Long term (current) use of oral hypoglycemic drugs; Z79.899 Other long term (current) drug therapy
CPT/HCPCS: 74176; 80048; 81001; 85025; 96361; 96374; 96375; 99282; J2405

== ENCOUNTER → 2025-02-21 | Outpatient (CLI) | payer MEDICARE, SELFPAY ==
[2025-02-21 09:36] LABS: Hematocrit 47.4 % (40-54); Hemoglobin 15.5 g/dL (13.0-16.5); Mean Corp Hgb Conc 32.7 g/dL (32-36); Mean Corpuscular Hgb 27.1 pg (27.0-32.0); Mean Platelet Vol. 10.8 fl (6.2-12.0); Platelet Count 175 K/mm3 (150-450); RBC Distribution Width CV 16.1 % (11.6-14.6); RBC Distribution Width SD 48.4 fl (35.1-43.9); Red Blood Count 5.71 M/mm3 (4.6-6.2); White Blood Count 7.4 K/mm3 (4.4-11.0)
[2025-02-21 11:15] LABS: Microalbumin,Random Urine 27.1 mg/L (NO RANGE EST.); Microalbumin:Creatinine Ratio 167.3 mg/g CRE
[2025-02-21 11:16] LABS: Hemoglobin A1c 5.9 % (<=5.6)
[2025-02-21 11:28] LABS: ALB/GLOB Ratio 1.7 RATIO (0.9-2.4); AST(SGOT) 34 U/L (<=37); Alanine Aminotransfer ALT/SGPT 28 U/L (<=46); Albumin, Serum 4.5 g/dL (3.5-5.0); Alkaline Phosphatase 75 U/L (40-129); Anion Gap 16 (5-15); BUN 9 mg/dL (4-19); BUN/Creat Ratio 9.9 RATIO (10-20); Calcium,Total 9.3 mg/dL (7.6-11.0); Carbon Dioxide 18.2 mmol/L (21.0-32.0); Chloride 102 mmol/L (98-108); Cholesterol 156 mg/dL (<=200); Creatinine, Serum 0.89 mg/dL (0.70-1.20); EST Glomerular Filtration Rate 99 (>60); Globulin 2.7 g/dL (2.2-4.2); Glucose 115 mg/dL (70-99); High Density Lipoprotein 38 mg/dL; Low Density Lipoprotein Calc. 53 mg/dL; PSA,Total - Annual Screen 0.57 ng/mL (0.02-4.00); Protein, Total 7.2 g/dL (5.9-8.4); Sodium Level 136 mmol/L (133-145); Total Bilirubin 0.77 mg/dL (0.00-1.30); Triglycerides 327 mg/dL; Very Low Density Lipoprotein 65 mg/dL (5-40); Vitamin D,25 Hydroxy 41.9 ng/mL (30-100); cholesterol:hdl ratio screen 4.13
[2025-02-21 11:35] LABS: Lipase 50 U/L (13-75)
[2025-02-21 11:47] LABS: Amylase 83 U/L (28-100)
== END | disposition home or self-care (01) ==
PROVIDERS: PCP Nurse Practitioner Family; Referring Provider Nurse Practitioner Family; Visit Provider Nurse Practitioner Family
DX: E11.9 Type 2 diabetes mellitus without complications (principal); K70.30 Alcoholic cirrhosis of liver without ascites; E78.1 Pure hyperglyceridemia; I10 Essential (primary) hypertension; D53.9 Nutritional anemia, unspecified; E55.9 Vitamin D deficiency, unspecified; Z12.5 Encounter for screening for malignant neoplasm of prostate
CPT/HCPCS: 36415; 80053; 80061; 82043; 82150; 82306; 82570; 83036; 83690; 84153; 85027; G0103

== ENCOUNTER → 2025-03-29 | Outpatient (CLI) | payer MEDICARE, SELFPAY ==
[2025-03-29 18:59] LABS: HIV Nonreactive (Nonreactive); Hepatitis C Antibody Nonreactive (Nonreactive)
== END | disposition home or self-care (01) ==
LOC: LAB 15:53
PROVIDERS: PCP Nurse Practitioner Family; Referring Provider Nurse Practitioner Family; Visit Provider Nurse Practitioner Family
DX: K74.60 Unspecified cirrhosis of liver (principal); R16.1 Splenomegaly, not elsewhere classified
CPT/HCPCS: 36415; 86703; 86803; 87536

== ENCOUNTER 2025-09-07 10:48 | Day surgery (SDC) | payer MEDICARE, SELFPAY ==
--- NOTE | 2025-09-05 14:56 | PAT.ANESEVAL ---
Pre-Assessment Diagnosis/Proposed Procedure Planned Operative Procedure(s): COLONOSCOPY Anesthesia History Anesthesia History - director of math: Anesthesia History - director of math Hx Hospitalization Yes 09/05/25 11:15 Any Problems With Anesthesia No 09/05/25 11:15 Cholinesterase deficiency No 09/05/25 11:15 You/Your Family Experience No 09/05/25 11:15 fever (hyperthermia) with Relationship Recent Exposure to Contagious No 12/25/23 23:39 Disease Does patient have nerve No 09/05/25 11:15 stimulator Patient instructed to have device shut off --Does patient have Pacemaker or ICD? When Was Last Pacemaker Check QUESTION #4 FULL TEXT: You/Your Family Experience fever (hyperthermia) with Anesthesia Last Oral Intake Last Oral intake: Last Oral Intake NPO since Meds taken in AM with sips of water? Meds patient instructed to take am of surgery PONV PONV - director of math: PONV - director of math Female No 09/05/25 11:15 HX of Motion Sickness No 09/05/25 11:15 HX of N/V After Surgery No 09/05/25 11:15 Non-Smoker No 09/05/25 11:15 Duration of Surgery greater No 09/05/25 11:15 than 60 minutes Number of Risk Factors PONV Score Height & Weight Height & Weight: Anesthesia: Height & Weight Height 5 ft 9 in 03/29/25 15:18 Respiratory Assessment Respiratory Assessment - director of math: Respiratory Tract Infection Hx - director of math Hx Respiratory Tract Infection No 09/05/25 11:15 STOP Sleep Apnea STOP Sleep Apnea - director of math: STOP Sleep Apnea - director of math Hx Hypertension Yes: CONTROLLED ON MED 09/05/25 11:15 Hx Sleep Apnea No 09/05/25 11:15 CPAP No 09/05/25 11:15 BIPAP No 09/05/25 11:15 Do you snore loudly (louder No 09/05/25 11:15 than talking or can be heard Do you often feel tired/ No 09/05/25 11:15 fatigued/ sleepy during daytime? Has anyone observed you stop No 09/05/25 11:15 breathing during sleep? STOP Results Negative 09/05/25 11:15 QUESTION #5 FULL TEXT : Do you snore loudly (louder than talking or can be heard through closed doors)? 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 Specify any problems Hx of Preganancy in last 3 N/A 09/05/25 11:15 Months Nurse Filling Out Transfusion VCHRISTIN 09/05/25 11:15 & Questions: Date: 09/05/25 09/05/25 11:15 Time: 11:16 09/05/25 11:15 Patient unable to answer at this time (ie. confused, unrespo /Reproduction History /Reproductive History - director of math: /Reproductive Hx- director of math Hx Now No 09/05/25 11:15 Gestational Age (in weeks): EDC: Hx Hx Para Hx Section SAB No 09/05/25 11:15 PFS Medical History (Updated 09/05/25 @ 11:14 by Carmelina Mcmanus) Wears glasses Alcohol use Rheumatoid arthritis Kidney stones History of ulceration Smoker COPD (chronic obstructive pulmonary disease) History of echocardiogram History of stress test Cardiology follow-up encounter SOB (shortness of breath) on exertion Heart failure with preserved ejection fraction Tinnitus, bilateral Renal mass Osteoarthritis Hypokalemia Major depression Increased BMI COPD with emphysema Chronic systolic HF (heart failure) Anemia, macrocytic Vitamin D deficiency Alcoholic cirrhosis Elevated LFTs Hypertriglyceridemia Hyperlipidemia Type 2 diabetes mellitus with hemoglobin A1c goal of less than 7.5% Depression Duodenal ulcer Diverticulitis Alcohol abuse JOVANA (acute kidney injury) Arthritis Chronic cough Insomnia Diabetes HTN (hypertension) Home Medications ?Medication ?Instructions ?Recorded ?Last Taken ?Type albuterol sulfate 90 mcg/actuation 2 inh inhalation Q6H PRN shortness 06/23/23 Unknown History breath activated powder inhaler of breath atorvastatin 40 mg tablet 40 mg PO DAILY 06/23/23 Unknown History escitalopram oxalate 20 mg tablet 20 mg PO QDAY 02/07/25 Unknown History furosemide 40 mg tablet 40 mg PO QDAY 02/07/25 Unknown History spironolactone 25 mg tablet 25 mg PO BID 02/07/25 Unknown History cholecalciferol (vitamin D3) 1,250 50,000 unit PO .Qotherweek 03/01/25 Unknown History mcg (50,000 unit) capsule empagliflozin 25 mg tablet 25 mg PO QAM 03/01/25 09/04/25 History (Jardiance) trazodone 100 mg tablet 100 mg PO QHS SLEEPING 03/01/25 Unknown History psyllium husk 0.4 gram capsule 0.4 g PO QDAY 03/29/25 Unknown History (Fiber (psyllium husk)) bisacodyl 5 mg tablet,delayed 20 mg (4 x 5 mg) PO ONCE #4 tabs 07/26/25 Unknown Rx release (Dulcolax (bisacodyl)) polyethylene glycol 3350 17 4 g PO ONCE #238 grams 07/26/25 Unknown Rx gram/dose oral powder Allergy/AdvReac Type Severity Reaction Status Date / Time No Known Allergies Allergy Verified 09/05/25 11:03 Family History Mother Hypertension Arthritis Surgical History (Updated 09/05/25 @ 11:14 by Carmelina Mcmnaus) History of esophagogastroduodenoscopy (EGD) History of umbilical hernia repair Total knee replacement status S/P carpal tunnel release S/P right knee surgery Social History housing: homeless Smoking Status: Current every day smoker tobacco type: cigarettes alcohol intake: current alcohol intake frequency: a few times a week Alcohol type: beer substance use type: former substance user Audit: Pertinent Findings Pertinent Findings EKG Perinent findings: 03/29/2025. Sinus rhythm. Left anterior fascicular block. Consider old anterior infarct. Stress test pertinent findings: 08/01/2020 no evidence of inducible ischemia cannot exclude inferior infarct. EF is 48%. Echo (EF%) pertinent findings: 08/01/2024. EF of 55%. Normal PA pressure. No aortic stenosis noted Consult pertinent findings: 03/29/2025. Dr. Rj. 1. Hypertriglyceridemia-managed with Vascepa, reducing dietary sugar and statin drug. Continue to follow. Recommendation Anesthesia Recommendation Anesthesia recommendation: OPTIMIZED for anesthesia
[2025-09-07] VITALS (10 sets, daily range): BP systolic 96–122; BP diastolic 70–78; PULSE 65–75; RESP 16; TEMP 36.1–37.1; O2SAT 95–98; BMI 31.6
--- NOTE | 2025-09-07 11:12 | PCM.HP.STD ---
HPI - General General Date of Admission: 09/07/25 Date of Service: 09/07/25 Chief Complaint: Surveillance colonoscopy HPI Narrative LUIS BRANDON, is a 60 M who presents [Chief Complaint: abd pain and needing a surveillance colonoscopy. 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 - Small hiatal hernia. - Oozing gastric ulcer with adherent clot. Injected. Treated with a heater probe. - Spurting duodenal ulcer with a visible vessel. Treatment not successful. Treated with argon plasma coagulation (APC). hemostatic spray applied. - No specimens collected. [facility] ED 02.10.25 with left flank pain over the past month. Work up unremarkable for acute processes. CT showing cirrhosis CT abd/pelvis 02.10.25. No acute abnormality of the abdomen and pelvis. 2. Cirrhosis with splenomegaly. 3. Prior coil embolization in the right upper quadrant, likely the gastroduodenal artery. 4. Mild colonic diverticulosis OV 03.15.25 Pt is no longer having any flank pain but wanted to keep his appointment with us just in case. Pt is aware of his cirrhosis and is no longer drinking heavily. He endorses drinking beer on occasion. He tells me his PCP monitors his liver. MELD 8 [facility] Medical History Wears glasses Alcohol use Rheumatoid arthritis Kidney stones History of ulceration Smoker COPD (chronic obstructive pulmonary disease) History of echocardiogram History of stress test Cardiology follow-up encounter SOB (shortness of breath) on exertion Heart failure with preserved ejection fraction Tinnitus, bilateral Renal mass Osteoarthritis Hypokalemia Major depression Increased BMI COPD with emphysema Chronic systolic HF (heart failure) Anemia, macrocytic Vitamin D deficiency Alcoholic cirrhosis Elevated LFTs Hypertriglyceridemia Hyperlipidemia Type 2 diabetes mellitus with hemoglobin A1c goal of less than 7.5% Depression Duodenal ulcer Diverticulitis Alcohol abuse JOVANA (acute kidney injury) Arthritis Chronic cough Insomnia Diabetes HTN (hypertension) Home Medications ?Medication ?Instructions ?Recorded ?Last Taken ?Type albuterol sulfate 90 mcg/actuation 2 inh inhalation Q6H PRN shortness 06/23/23 Unknown History breath activated powder inhaler of breath atorvastatin 40 mg tablet 40 mg PO DAILY 06/23/23 Unknown History escitalopram oxalate 20 mg tablet 20 mg PO QDAY 02/07/25 Unknown History furosemide 40 mg tablet 40 mg PO QDAY 02/07/25 Unknown History spironolactone 25 mg tablet 25 mg PO BID 02/07/25 Unknown History cholecalciferol (vitamin D3) 1,250 50,000 unit PO .Qotherweek 03/01/25 Unknown History mcg (50,000 unit) capsule empagliflozin 25 mg tablet 25 mg PO QAM 03/01/25 09/04/25 History (Jardiance) trazodone 100 mg tablet 100 mg PO QHS SLEEPING 03/01/25 Unknown History psyllium husk 0.4 gram capsule 0.4 g PO QDAY 03/29/25 Unknown History (Fiber (psyllium husk)) bisacodyl 5 mg tablet,delayed 20 mg (4 x 5 mg) PO ONCE #4 tabs 07/26/25 Unknown Rx release (Dulcolax (bisacodyl)) polyethylene glycol 3350 17 4 g PO ONCE #238 grams 07/26/25 Unknown Rx gram/dose oral powder Allergy/AdvReac Type Severity Reaction Status Date / Time No Known Allergies Allergy Verified 09/07/25 11:11 Family History Mother Hypertension Arthritis Surgical History History of esophagogastroduodenoscopy (EGD) History of umbilical hernia repair Total knee replacement status S/P carpal tunnel release S/P right knee surgery Social History housing: homeless Smoking Status: Current every day smoker tobacco type: cigarettes alcohol intake: current alcohol intake frequency: a few times a week Alcohol type: beer substance use type: former substance user ROS Constitutional Constitutional: Denies fatigue, fever(s), poor appetite, weight gain or weight loss Gastrointestinal Gastrointestinal: Denies belching, bloating, change in bowel habits, change in stool character, chewing difficulty, coffee ground emesis, constipation, cramping, diarrhea, dyspepsia, dysphagia, early satiety, excessive flatus, fecal incontinence, heartburn, hematemesis, hematochezia, hemorrhoids, loose stools, melena, nausea, odynophagia, rectal bleeding, tenesmus, vomiting or weight changes Physical Exam Narrative GENERAL: cooperative HEENT: Atraumatic; normocephalic EYES; Anicteric, Normal Conjunctiva NECK; supple, normal thyroid, RESPIRATORY: Diminished to auscultation CARDIOVASCULAR: Regular S1 S2, GI: soft, normoactive bowel sounds, : No Renal angle tenderness; EXTREMITIES: No edema, no clubbing, MUSCULOSKELETAL: no muscle wasting NEURO: Awake; no lateralizing signs. SKIN: No Rash PSYCH; Flat affect Assessment & Plan Assessment/Plan (1) Diverticulitis: (2) Anemia, macrocytic: PLAN: Assessment and Plan Assessment and Plan (1) Alcoholic cirrhosis: Status: Acute Plan: This is a 59 yo male pt here today for evaluation. Pt presented to [facility] ED recently due to left sided flank pain. This eventually resolved however he was referred to [facility] for findings of cirrhosis on his CT. He was aware of this diagnosis and tells me that his PCP monitors his liver. I advised that I am able to monitor his liver cirrhotic however he would prefer to stay with his PCP for this. I have calculated his MELD score with his most recent blood work and it was 8. Pt has hx of gastric, duodenal ulcer and Espino diagnosed in 2023. He did not undergo repeat EGD yet and I advised he be scheduled for this however he declines. He will f/u with [facility] as needed in the future. -Recommended we treat his liver disease but would prefer to continue with PCP -Recommended repeat EGD but declined -MELD is 8 -F/u as needed (2) Abdominal pain: Status: Resolved ]
[2025-09-07] MEDS: Lactated Ringers 1,000 ML 15 ML IV (11:23)
--- NOTE | 2025-09-07 11:41 | PCM.PRE.AN2 ---
ASA Classification* ASA Classification ASA Classification: 3 Assessment & Plan Anesthesia* Anesthesia Assessment Anesthesia Assessment: Discussed sedation and/or anesthesia options, risks, benefits, and alternatives with patient/parents/legal guardian/POA. Questions invited. The patient/parents/legal guardian/POA seems to understand and agrees to proceed with anesthesia plan. Reviewed the physical assessment, medical history, allergy history and patient home medications list prior to surgery/procedure/anesthetic and documented any changes. Performed airway and anesthesia risk assessments. Anesthesia Type Anesthesia Type: MAC History Source History Obtained from:: Patient and Chart Anesthesia Focused Assessment* Temperature: 98.7 F Pulse Rate: 75 Blood Pressure: 122/75 Respiratory Rate: 16 Pulse Ox: 98 Airway Assessment Mouth opens: >3 cm Mallampati Score: II Labs Anesthesia Preop lab: CBC WBC, (4.4-11.0) 7.4 K/mm3 02/21/25, 09:06 RBC, (4.6-6.2) 5.71 M/mm3 02/21/25, 09:06 Hgb, (13.0-16.5) 15.5 g/dL 02/21/25, 09:06 Hct, (40-54) 47.4 % 02/21/25, 09:06 Plt Count, (150-450) 175 K/mm3 02/21/25, 09:06 CHEMISTRY Potassium, (3.3-5.1) 4.0 mmol/L 02/21/25, 09:06 Sodium, (133-145) 136 mmol/L 02/21/25, 09:06 Magnesium, (1.6-2.6) 2.0 mg/dL 08/09/24, 14:06 Phosphorus, (2.5-4.9) 3.4 mg/dL 12/26/23, 03:02 BUN, (4-19) 9 mg/dL 02/21/25, 09:06 Creatinine, (0.70-1.20) 0.89 mg/dL 02/21/25, 09:06 Glucose, (70-99) 115 mg/dL H 02/21/25, 09:06 POC Glucose, (74-106) 102 mg/dL 12/26/23, 20:12 COAG PT, (11.7-14.9) 15.3 SECONDS H 12/26/23, 03:02 Pre-Assessment Diagnosis/Proposed Procedure Planned Operative Procedure(s): COLONOSCOPY Anesthesia History 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 When Was Last Pacemaker Check QUESTION #4 FULL TEXT: You/Your Family Experience fever (hyperthermia) with Anesthesia Last Oral Intake Last Oral intake: Last Oral Intake NPO since 08:00 09/07/25 11:12 Meds taken in AM with sips of No 09/07/25 11:12 water? Meds patient instructed to take am of surgery PONV PONV - dry cans operator: PONV - dry cans operator Female No 09/05/25 11:15 HX of Motion Sickness No 09/05/25 11:15 HX of N/V After Surgery No 09/05/25 11:15 Non-Smoker No 09/05/25 11:15 Duration of Surgery greater No 09/05/25 11:15 than 60 minutes Number of Risk Factors PONV Score Height & Weight Height & Weight: Anesthesia: Height & Weight Height 5 ft 9 in 09/07/25 11:12 Weight: 97.1 kg 09/07/25 11:12 Body Mass Index (BMI) 31.6 09/07/25 11:12 Respiratory Assessment Respiratory Assessment - dry cans operator: Respiratory Tract Infection Hx - dry cans operator Hx Respiratory Tract Infection No 09/05/25 11:15 STOP Sleep Apnea STOP Sleep Apnea - dry cans operator: STOP Sleep Apnea - dry cans operator Hx Hypertension Yes: CONTROLLED ON MED 09/05/25 11:15 Hx Sleep Apnea No 09/05/25 11:15 CPAP No 09/05/25 11:15 BIPAP No 09/05/25 11:15 Do you snore loudly (louder No 09/05/25 11:15 than talking or can be heard Do you often feel tired/ No 09/05/25 11:15 fatigued/ sleepy during daytime? Has anyone observed you stop No 09/05/25 11:15 breathing during sleep? STOP Results Negative 09/05/25 11:15 QUESTION #5 FULL TEXT : Do you snore loudly (louder than talking or can be heard through closed doors)? 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 Specify any problems Hx of Preganancy in last 3 N/A 09/05/25 11:15 Months Nurse Filling Out Transfusion VCHRISTIN 09/05/25 11:15 & Questions: Date: 09/05/25 09/05/25 11:15 Time: 11:16 09/05/25 11:15 Patient unable to answer at this time (ie. confused, unrespo /Reproduction History /Reproductive History - dry cans operator: /Reproductive Hx- dry cans operator Hx Now No 09/05/25 11:15 Gestational Age (in weeks): EDC: Hx Hx Para Hx Section SAB No 09/05/25 11:15 Active Medications Active Medications: Current Medications Generic Name Dose Route Start Last Admin Trade Name Freq PRN Reason Stop Dose Admin Lactated Ringer's 1,000 mls @ 15 mls/hr 09/07/25 11:15 09/07/25 11:23 IV 15 mls/hr .Q48H MICHELLE Administration PFSH Medical History Wears glasses Alcohol use Rheumatoid arthritis Kidney stones History of ulceration Smoker COPD (chronic obstructive pulmonary disease) History of echocardiogram History of stress test Cardiology follow-up encounter SOB (shortness of breath) on exertion Heart failure with preserved ejection fraction Tinnitus, bilateral Renal mass Osteoarthritis Hypokalemia Major depression Increased BMI COPD with emphysema Chronic systolic HF (heart failure) Anemia, macrocytic Vitamin D deficiency Alcoholic cirrhosis Elevated LFTs Hypertriglyceridemia Hyperlipidemia Type 2 diabetes mellitus with hemoglobin A1c goal of less than 7.5% Depression Duodenal ulcer Diverticulitis Alcohol abuse JOVANA (acute kidney injury) Arthritis Chronic cough Insomnia Diabetes HTN (hypertension) Home Medications ?Medication ?Instructions ?Recorded ?Last Taken ?Type albuterol sulfate 90 mcg/actuation 2 inh inhalation Q6H PRN shortness 06/23/23 Unknown History breath activated powder inhaler of breath atorvastatin 40 mg tablet 40 mg PO DAILY 06/23/23 Unknown History escitalopram oxalate 20 mg tablet 20 mg PO QDAY 02/07/25 Unknown History furosemide 40 mg tablet 40 mg PO QDAY 02/07/25 Unknown History spironolactone 25 mg tablet 25 mg PO BID 02/07/25 Unknown History cholecalciferol (vitamin D3) 1,250 50,000 unit PO .Qotherweek 03/01/25 Unknown History mcg (50,000 unit) capsule empagliflozin 25 mg tablet 25 mg PO QAM 03/01/25 09/04/25 History (Jardiance) trazodone 100 mg tablet 100 mg PO QHS SLEEPING 03/01/25 Unknown History psyllium husk 0.4 gram capsule 0.4 g PO QDAY 03/29/25 Unknown History (Fiber (psyllium husk)) bisacodyl 5 mg tablet,delayed 20 mg (4 x 5 mg) PO ONCE #4 tabs 07/26/25 Unknown Rx release (Dulcolax (bisacodyl)) polyethylene glycol 3350 17 4 g PO ONCE #238 grams 07/26/25 Unknown Rx gram/dose oral powder Allergy/AdvReac Type Severity Reaction Status Date / Time No Known Allergies Allergy Verified 09/07/25 11:11 Family History Mother Hypertension Arthritis Surgical History History of esophagogastroduodenoscopy (EGD) History of umbilical hernia repair Total knee replacement status S/P carpal tunnel release S/P right knee surgery Social History housing: homeless Smoking Status: Current every day smoker tobacco type: cigarettes alcohol intake: current alcohol intake frequency: a few times a week Alcohol type: beer substance use type: former substance user Review of Systems (Anesthesia) ROS Narrative System reviewed and no additional complaints, except as documented.
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
--- NOTE | 2025-09-07 12:00 | COLBX_PTH ---
PATIENT: LUIS BRANDON LOC: EN U#:[id number] AGE/SX: 60/M ROOM: RE09/07/[address]: Dr. Hao Patino DO : 1965 BED: DIS: 09/07/2025 SPEC #: [id number] RECD: 09/07/25 13:41 STATUS: GO ROSE #: [id number] LYNSEY: 09/07/25 12:[address]: Hao Patino DEPT: SURGICAL PATHOLOGY RECD BY: Jenaro Kim ENTERED: 09/07/25 14:18 SP TYPE: COLON BX OTHR DR: Eduardo Serrano, SOFTWARE QUALITY ASSURANCE ENGINEER-C Tissues: A - COLON BIOPSY B - Cecum, NOS C - Sigmoid colon biopsy Procedures: Surgery Specimen Level IV HEADER OPERATION: Colonoscopy, polypectomy PRE-OP DIAGNOSIS: Diverticulitis, anemia, macrocytic TISSUE SUBMITTED: A- Hepatic flexure polyp, B- Cecal polyp, C- Sigmoid polyp MICROSCOPIC DIAGNOSIS A. Hepatic flexure, polyp, biopsy: - Tubular adenoma. B. Cecum, polyp, biopsy: - Tubular adenoma. C. Sigmoid colon, polyp, biopsy: - Tubular adenoma. MICROSCOPIC DESCRIPTION Slides are reviewed. GROSS DESCRIPTION A. Received in fixative is one container labeled with the patient's name and designated Hepatic flexure polyp. The specimen consists of two irregular fragments of gandhi tissue that measure 0.3 and 0.4 cm. The specimen is totally submitted in one cassette. B. Received in fixative is one container labeled with the patient's name and designated Cecal polyp. The specimen consists of multiple irregular fragments of gandhi tissue that in aggregate measure 2 x 0.9 x 0.3 cm, aggregate admixed with flocculent material. The specimen is totally submitted in one cassette. C. Received in fixative is one container labeled with the patient's name and designated Sigmoid polyp. The specimen consists of three irregular fragments of gandhi tissue, each measuring 0.4 cm. The resection margin of one fragment is inked blue. The specimen is totally submitted in one cassette. NM 09/07/2025 CPT:54596j8
--- NOTE | 2025-09-07 12:46 | PCM.POST.ANE ---
Anesthesia: Postop Eval I Current Vital Signs Temperature: 97 F Pulse Rate: 68 Blood Pressure: 100/72 Respiratory Rate: 16 Pulse Ox: 95 Oxygen Delivery Method: Room Air Assessment Airway patent: Yes Spontaneous unlabored respirations: Yes Mental status: Asleep nausea: No Vomiting: No Anesthesia Complication: No Fluid Hydration Crystalloid volume administer (ml): 900 Total IV fluid infused: 900 Progress Note Anesthesia document: Postop Eval 1 completed: Yes
--- NOTE | 2025-09-07 12:48 | OP.COLON_ITS ---
Patient Name: Kory Johnston Procedure Date: 09/07/2025 11:14 AM Date of : 1965 Age: 60 Procedure: Colonoscopy Indications: High risk colon cancer surveillance: Personal history of colonic polyps Providers: Hao Patino DO Referring MD: Eduardo Serrano Medicines: Monitored Anesthesia Care Patient Profile: This is a 60 year old male. Refer to note in patient chart for documentation of history and physical. Last Colonoscopy: 5 years ago. Complications: No immediate complications. Estimated blood loss: None. Procedure: Pre-Anesthesia Assessment: - Prior to the procedure, a History and Physical was performed, and patient medications and allergies were reviewed. The patient is competent. The risks and benefits of the procedure and the sedation options and risks were discussed with the patient. All questions were answered and informed consent was obtained. Patient identification and proposed procedure were verified by the physician in the pre-procedure area. Mental Status Examination: alert and oriented. Airway Examination: normal oropharyngeal airway and neck mobility. Respiratory Examination: clear to auscultation. CV Examination: normal. Prophylactic Antibiotics: The patient does not require prophylactic antibiotics. Prior Anticoagulants: The patient has taken no anticoagulant or antiplatelet agents. ASA Grade Assessment: II - A patient with mild systemic disease. After reviewing the risks and benefits, the patient was deemed in satisfactory condition to undergo the procedure. The anesthesia plan was to use monitored anesthesia care (MAC). Immediately prior to administration of medications, the patient was re-assessed for adequacy to receive sedatives. The heart rate, respiratory rate, oxygen saturations, blood pressure, adequacy of pulmonary ventilation, and response to care were monitored throughout the procedure. The physical status of the patient was re-assessed after the procedure. After I obtained informed consent, the scope was passed under direct vision. Throughout the procedure, the patient's blood pressure, pulse, and oxygen saturations were monitored continuously. The Colonoscope was introduced through the anus and advanced to the cecum, identified by appendiceal orifice and ileocecal valve. The colonoscopy was performed without difficulty. The patient tolerated the procedure well. The quality of the bowel preparation was adequate. The ileocecal valve, appendiceal orifice, and rectum were photographed. Scope In: 11:59:26 AM Scope Withdrawal Time 0 hours 16 minutes 0 seconds Scope Out: 12:35:15 PM Total Procedure Duration Time 0 hours 35 minutes 49 seconds Findings: The perianal and digital rectal examinations were normal. Multiple small and large-mouthed diverticula were found in the recto-sigmoid colon, sigmoid colon and descending colon. Two sessile polyps were found in the sigmoid colon. The polyps were 10 mm in size. These polyps were removed with a hot snare. Resection and retrieval were complete. Verification of patient identification for the specimen was done. Estimated blood loss was minimal. Two sessile polyps were found in the cecum. The polyps were 9 mm in size. These polyps were removed with a hot snare. Resection and retrieval were complete. Verification of patient identification for the specimen was done. Estimated blood loss was minimal. A 4 mm polyp was found in the ascending colon. The polyp was sessile. Coagulation for destruction of remaining portion of lesion using monopolar probe was successful. Estimated blood loss was minimal. Impression: - Diverticulosis in the recto-sigmoid colon, in the sigmoid colon and in the descending colon. - Two 10 mm polyps in the sigmoid colon, removed with a hot snare. Resected and retrieved. - Two 9 mm polyps in the cecum, removed with a hot snare. Resected and retrieved. - One 4 mm polyp in the ascending colon. Treated with a monopolar probe. Recommendation: - Repeat colonoscopy in 3 - 5 years for surveillance. - Continue present medications. Procedure Code(s): --- Professional --- 41131, Colonoscopy, flexible; with ablation of tumor(s), polyp(s), or other lesion(s) (includes pre- and post-dilation and guide wire passage, when performed) 97344, 59, Colonoscopy, flexible; with removal of tumor(s), polyp(s), or other lesion(s) by snare technique CPT copyright 2021 [employer]. All rights reserved. The codes documented in this report are preliminary and upon corporate communications specialist review may be revised to meet current compliance requirements. Hao Patino DO 09/07/2025 12:47:52 PM This report has been signed electronically. Number of Addenda: 0 Note Initiated On: 09/07/2025 11:14 AM
--- NOTE | 2025-09-07 12:48 | OP.PROVAT_ITS ---
09/07/2025 Eduardo Serrano Re : Colonoscopy procedure for Kory Beyerchristiano Serrano This procedure was performed on August. My impressions and recommendations are as follows: Impressions : - Diverticulosis in the recto-sigmoid colon, in the sigmoid colon and in the descending colon. - Two 10 mm polyps in the sigmoid colon, removed with a hot snare. Resected and retrieved. - Two 9 mm polyps in the cecum, removed with a hot snare. Resected and retrieved. - One 4 mm polyp in the ascending colon. Treated with a monopolar probe. Recommendations : - Repeat colonoscopy in 3 - 5 years for surveillance. - Continue present medications. My findings are described in the full procedure note, which is enclosed. If I can be of further assistance, please feel free to contact me at . Sincerely, Hao Patino, 09/07/2025 12:47:52 PM This report has been signed electronically.
--- NOTE | 2025-09-07 14:23 | PCM.POSTANE2 ---
Anesthesia Postop Eval I Sum Postop Eval Completion status Anesthesia document: Postop Eval 1 completed: Yes Anesthesia Postop Eval I Summary Anesthesia Postop Eval I Summary: Anesthesia Postop Eval I: Assessment Summary Airway patent Yes 09/07/25 12:47 [email or web address] Spontaneous unlabored Yes 09/07/25 12:47 [email or web address] respirations Mental status Asleep 09/07/25 12:47 [email or web address] nausea No 09/07/25 12:47 [email or web address] Vomiting No 09/07/25 12:47 [email or web address] Anesthesia Postop Eval I: Fluid Summary Crystalloid volume administer 900 09/07/25 12:47 [email or web address] (ml) Colloids volume administered ( ml) Blood Product volume administered (ml) Total IV fluid infused 900 09/07/25 12:47 [email or web address] Anesthesia Postop Eval I: Summary Notes Anesthesia Complication No 09/07/25 12:47 [email or web address] Anesthesia Complication Comment: Post-operative progress note Anesthesia: Postop Eval II Evaluation Mental status: Awake and Calm Pain Level: 1 nausea: No Vomiting: No Complications Anesthesia Complication: No
== END 2025-09-07 13:46 | disposition home or self-care (01) ==
LOC: EN 10:49 → AC 10:51
PROVIDERS: PCP Nurse Practitioner Family; Referring Provider Nurse Practitioner Family; Visit Provider Internal Medicine Gastroenterology
PROC: 0DJD8ZZ Inspection of Lower Intestinal Tract, Via Natural or Artificial Opening Endoscopic (ICD-10-PCS; CPT 45378; principal; 2025-09-07 11:55)
DX: Z12.11 Encounter for screening for malignant neoplasm of colon (principal); K70.30 Alcoholic cirrhosis of liver without ascites; I11.0 Hypertensive heart disease with heart failure; I50.22 Chronic systolic (congestive) heart failure; J44.9 Chronic obstructive pulmonary disease, unspecified; E11.9 Type 2 diabetes mellitus without complications; F17.210 Nicotine dependence, cigarettes, uncomplicated; D53.9 Nutritional anemia, unspecified; E78.5 Hyperlipidemia, unspecified; K57.30 Diverticulosis of large intestine without perforation or abscess without bleeding; Z86.0100 Personal history of colon polyps, unspecified; Z79.84 Long term (current) use of oral hypoglycemic drugs; K63.5 Polyp of colon; F32.A Depression, unspecified; Z79.899 Other long term (current) drug therapy; Z96.659 Presence of unspecified artificial knee joint; D12.0 Benign neoplasm of cecum
CPT/HCPCS: 45388; 45385; 88305; J2405

== ENCOUNTER → 2025-09-27 | Outpatient (CLI) | payer MEDICARE, SELFPAY ==
[2025-09-27 10:19] LABS: AST(SGOT) 62 U/L (<=37); Alanine Aminotransfer ALT/SGPT 48 U/L (<=46); Albumin, Serum 4.6 g/dL (3.4-4.8); Alkaline Phosphatase 82 U/L (40-129); Amylase 76 U/L (28-100); Anion Gap 15 (5-15); BUN 9 mg/dL (4-19); BUN/Creat Ratio 11.6 RATIO (10-20); Calcium,Total 9.7 mg/dL (7.6-11.0); Carbon Dioxide 20.1 mmol/L (21.0-32.0); Chloride 103 mmol/L (98-108); Globulin 2.9 g/dL (2.2-4.2); Glucose 111 mg/dL (70-99); Lipase 45 U/L (13-75); Potassium 3.9 mmol/L (3.3-5.1)
[2025-09-27 10:52] LABS: Creatinine, Urine (random) 223.00 mg/dL (39.00-259.00); Microalbumin,Random Urine 40.5 mg/L (<20 mg/L)
[2025-09-27 11:11] LABS: Cholesterol 160 mg/dL (<=200); Low Density Lipoprotein Calc. 72 mg/dL; Triglycerides 178 mg/dL; Very Low Density Lipoprotein 36 mg/dL (5-40); cholesterol:hdl ratio screen 2.77
== END | disposition home or self-care (01) ==
LOC: LAB 09:06
PROVIDERS: PCP Nurse Practitioner Family; Referring Provider Nurse Practitioner Family; Visit Provider Nurse Practitioner Family
DX: R73.01 Impaired fasting glucose (principal); F10.20 Alcohol dependence, uncomplicated; E78.5 Hyperlipidemia, unspecified; R10.32 Left lower quadrant pain
CPT/HCPCS: 36415; 80053; 80061; 82043; 82150; 82570; 83036; 83690